=== PATIENT | female | born 1940 | race Hispanic/Latino ===

== ENCOUNTER 2016-06-13 07:42 | Emergency (ER) | payer MEDICARE, OTHER ==
[2016-06-13 07:55] VITALS: BMI 18.8
[2016-06-13 07:57] VITALS: BP 180/85; PULSE 58; RESP 16; TEMP 98.7; O2SAT 97
--- NOTE | 2016-06-13 08:19 | ED PDOC ---
Arrival/HPI - General Chief Complaint: Back Pain Time Seen by Provider: 06/13/16 07:48 - History of Present Illness Narrative History of Present Illness (Text): 06/13/16 08:16 Patient presents complaining of back pain. States the location is in the R. lower region, feels like muscle spasms. Worst with movement and palpation. Pt states this feels identical to previous back pain quality that have happened in the past. Denies fevers/chills, denies IVDA, denies any lower extremity weakness /numbness/paresthesias. Pt denies saddle anesthesia. Denies any urinary freq or retention. Denies bowel dysfunction/irregularity/incontinence/constipation. Past Medical History - Provider Review Nursing Documentation Reviewed: Yes - Infectious Disease Hx of Infectious Diseases: None, C.diff - Tetanus Immunization Tetanus Immunization: Unknown - Cardiac Hx Atrial Fibrillation: Yes Hx Cardiac Arrhythmia: Yes Hx Congestive Heart Failure: Yes Hx Hypertension: Yes - Pulmonary Hx Respiratory Disorders: Yes Hx Chronic Obstructive Pulmonary Disease (COPD): Yes Hx Emphysema: Yes - Neurological Hx Neurological Disorder: Yes Hx Transient Ischemic Attacks (TIA): Yes - HEENT Hx HEENT Disorder: Yes Hx Glaucoma: Yes - Renal Hx Renal Disorder: No Hx Kidney Stones: No - Endocrine/Metabolic Hx Endocrine Disorders: No Hx Hyperthyroidism: No Hx Hypothyroidism: No - Hematological/Oncological Hx Anemia: No Hx Sickle Cell Disease: No - Integumentary Hx Dermatological Disorder: No - Musculoskeletal/Rheumatological Hx Musculoskeletal Disorders: Yes Hx Arthritis: Yes Hx Osteoporosis: Yes - Gastrointestinal Hx Gastrointestinal Disorders: Yes Hx Gastrointestinal Ulcer: Yes - Genitourinary/Gynecological Hx Genitourinary Disorders: No Hx Sexually Transmitted Diseases: No - Psychiatric Hx Psychophysiologic Disorder: Yes Hx Anxiety: Yes Hx Depression: Yes Hx Substance Use: No - Past Surgical History Past Surgical History: No Previous - Surgical History Hx Appendectomy: No Hx Cholecystectomy: No Hx Coronary Stent: No Hx Tonsillectomy: Yes - Anesthesia Hx Anesthesia: No - Suicidal Assessment Feels Threatened In Home Enviroment: No Family/Social History Family/Social History: No Known Family HX Smoking Status: Light Smoker < 10 Cigarettes Daily Hx Alcohol Use: No Hx Substance Use: No Hx Substance Use Treatment: Yes Allergies/Home Meds Allergies/Adverse Reactions: Allergies No Known Allergies Allergy (Verified 06/13/16 07:55) Home Medications: Home Meds Medication Instructions Recorded Confirmed Alprazolam [Xanax] 1 mg PO BID PRN 06/02/12 06/09/14 Aspirin 81 mg PO DAILY 06/09/14 06/13/16 Buprenorphine HCl/Naloxone HCl 06/13/16 [Suboxone 2 mg-0.5 mg Sl Film] amLODIPine [Norvasc] 06/13/16 Physical Exam - Physical Exam Narrative Physical Exam (Text): 06/13/16 08:17 - Review of Systems Constitutional: Normal. absent: Fatigue, Weight Change, Fevers Eyes: Normal ENT: denies sore throat, denies tristhmus Respiratory: Normal. absent: SOB, Cough, Sputum Cardiovascular: absent: Chest Pain, Palpitations, Syncope Gastrointestinal: Normal. absent: Abdominal Pain, Diarrhea, Nausea, Vomiting Genitourinary: Normal. absent: Dysuria, Frequency, Hematuria, vaginal bleeding Musculoskeletal: Back Pain. absent: Arthralgias, Neck Pain Skin: no rashes, no erythema Neurological: absent: Focal Weakness Endocrine: Normal Hemo/Lymphatic: Normal Psychiatric: No suicidal or homicidal ideations Physical exam Patient appears age appropriate in no distress, speaking full sentences without difficulty Increased hypertonicity appreciated in the right lower lumbar region, pain quality with palpation. No midline tenderness. FROM of pt's cervical, thoracic, lumbar, and sacral regions appreciated, active/passive without any difficulty. Lower extremities with full neurological and vascular intact. Steady gait. - Systems Exam Head: Present: Atraumatic, Normocephalic Pupils: Present: PERRL Extroacular Muscles: Present: EOMI Conjunctiva: Present: Normal Mouth: Present: Moist Mucous Membranes Neck: Present: Normal Range of Motion. No: MIDLINE TENDERNESS, Paraspinal Tenderness Respiratory/Chest: Present: Clear to Auscultation, Good Air Exchange. No: Respiratory Distress, Accessory Muscle Use, Tachypneic Cardiovascular: Present: Regular Rate and Rhythm, Normal S1, S2, Peripheal Pulses Present. No: Murmurs Abdomen: Present: Normal Bowel Sounds. No: Tenderness, Distention, Peritoneal Signs, Rebound, Guarding Back: Present: No: Midline Tenderness Upper Extremity: Present: Normal Inspection. No: Cyanosis, Edema Lower Extremity: Present: Normal Inspection. No: Edema Neurological: Present: GCS=15, Speech Normal, cranial nerves II through XII fully intact with no cerebellar abnormality, neurosensory fully intact. No focal neurological deficits. Skin: Present: Warm, Dry, Normal Color. No: Rashes Lymphatic: Present: OX3, NI, NC Psychiatric: Present: Alert, Oriented x 3, Normal Insight, Normal Concentration Vital Signs Reviewed: Yes Vital Signs Temp Pulse Resp BP Pulse Ox 06/13/16 07:55 98.7 F 58 L 16 180/85 H 97 Temperature: Afebrile Blood Pressure: Hypertensive (pt states she has a hx of HTN, asymptomatic) Pulse: Regular Respiratory Rate: Normal Appearance: Positive for: Non-Toxic, Comfortable Pain Distress: Mild Mental Status: Positive for: Alert and Oriented X 3 Medical Decision Making ED Course and Treatment: pt refused any medications in the ER, reported symptomatic relief without intervention. Ambulating in the emergency department.Based on hx and physical, no suspicion for renal involvement, cord impingement or epidural/spinal abscess stable for dc home. instructed not to drive/operate machinery/drink/do drugs with medication Pt verbalized understands to return to the ER right away for new or worsening symptoms or for inability to f/u with PMD or specialist as instructed. Patient verbalized full agreement with and understanding of discharge instructions. States that she agrees with the plan and disposition. Verbalized and repeated discharge instructions and plan. I have given the patient opportunity to ask any additional questions. - Medication Orders Current Medication Orders: Discontinued Medications Diazepam (Valium) 5 mg PO ONCE ONE Stop: 06/13/16 08:13 Ketorolac Tromethamine (Toradol) 15 mg IM STAT STA Stop: 06/13/16 08:13 Disposition/Present on Arrival - Present on Arrival Any Indicators Present on Arrival: No History of DVT/PE: No History of Uncontrolled Diabetes: No Urinary Catheter: No History of Decub. Ulcer: No History Surgical Site Infection Following: None - Disposition Have Diagnosis and Disposition been Completed?: Yes Diagnosis: Back pain Disposition: HOME/ ROUTINE Disposition Time: 08:42 Patient Plan: Discharge Condition: GOOD Discharge Instructions (ExitCare): Chronic Back Pain (ED) Additional Instructions: PLEASE RETURN TO THE EMERGENCY DEPARTMENT FOR NEW OR WORSENING SYMPTOMS. RETURN RIGHT AWAY IF YOU CANNOT FOLLOW UP WITH YOUR PRIMARY CARE DOCTOR, CLINIC, OR SPECIALIST IN 1-2 DAYS.
== END 2016-06-13 09:06 | disposition home or self-care (01) ==
LOC: ED 07:42
DX: M54.9 Dorsalgia, unspecified (principal); I48.91 Unspecified atrial fibrillation; I10 Essential (primary) hypertension

== ENCOUNTER 2016-08-18 08:14 | Inpatient (IN) | payer MEDICARE, OTHER ==
[2016-08-18 08:14] VITALS: BMI 18.8
--- NOTE | 2016-08-18 08:36 | ED PDOC ---
Arrival/HPI - General Chief Complaint: High Blood Pressure Time Seen by Provider: 08/18/16 08:16 Historian: Patient - History of Present Illness Narrative History of Present Illness (Text): 08/18/16 08:31 76 year old female presents to the emergency department complaining of anxiety and withdrawal from Xanax. She states she ran out of her Xanax two days ago, which she has been taking 1 mg BID for the past 10 years. She states this feels like previous symptoms when she was off Xanax. Symptoms include left sided non- exertional, non-radiating chest pain, shortness of breath, and insomnia. She also reports life stressors due to moving out of her "boarding home." Patient reports she has an appointment with her PCP at 17:00 later today. PMD: Dr. Porter Time/Duration: < week Symptom Onset: Gradual Symptom Course: Unchanged Modifying Factors (Text): None Past Medical History - Provider Review Nursing Documentation Reviewed: Yes - Infectious Disease Hx of Infectious Diseases: None - Tetanus Immunization Tetanus Immunization: Unknown - Cardiac Hx Atrial Fibrillation: Yes Hx Cardiac Arrhythmia: Yes Hx Congestive Heart Failure: Yes Hx Hypertension: Yes - Pulmonary Hx Respiratory Disorders: Yes Hx Chronic Obstructive Pulmonary Disease (COPD): Yes Hx Emphysema: Yes - Neurological Hx Neurological Disorder: Yes Hx Transient Ischemic Attacks (TIA): Yes - HEENT Hx HEENT Disorder: Yes Hx Glaucoma: Yes - Renal Hx Renal Disorder: No Hx Kidney Stones: No - Endocrine/Metabolic Hx Endocrine Disorders: No Hx Hyperthyroidism: No Hx Hypothyroidism: No - Hematological/Oncological Hx Anemia: No Hx Sickle Cell Disease: No - Integumentary Hx Dermatological Disorder: No - Musculoskeletal/Rheumatological Hx Musculoskeletal Disorders: Yes Hx Arthritis: Yes Hx Osteoporosis: Yes - Gastrointestinal Hx Gastrointestinal Disorders: Yes Hx Gastrointestinal Ulcer: Yes - Genitourinary/Gynecological Hx Genitourinary Disorders: No Hx Sexually Transmitted Diseases: No - Psychiatric Hx Psychophysiologic Disorder: Yes Hx Anxiety: Yes Hx Depression: Yes Hx Substance Use: No - Past Surgical History Past Surgical History: No Previous - Surgical History Hx Appendectomy: No Hx Cholecystectomy: No Hx Coronary Stent: No Hx Tonsillectomy: Yes - Anesthesia Hx Anesthesia: No - Suicidal Assessment Feels Threatened In Home Enviroment: No Family/Social History - Physician Review Nursing Documentation Reviewed: Yes Family/Social History: Unknown Family HX Smoking Status: Light Smoker < 10 Cigarettes Daily Hx Alcohol Use: No Hx Substance Use: No Hx Substance Use Treatment: Yes Allergies/Home Meds Allergies/Adverse Reactions: Allergies No Known Allergies Allergy (Verified 08/18/16 08:27) Home Medications: Home Meds Medication Instructions Recorded Confirmed Alprazolam [Xanax] 1 mg PO BID PRN 06/02/12 06/09/14 Aspirin 81 mg PO DAILY 06/09/14 06/13/16 Buprenorphine HCl/Naloxone HCl 06/13/16 [Suboxone 2 mg-0.5 mg Sl Film] amLODIPine [Norvasc] 06/13/16 Review of Systems - Physician Review All systems were reviewed & negative as marked: Yes - Review of Systems Constitutional: Other (Insomnia) Eyes: absent: Vision Changes ENT: absent: Hearing Changes Respiratory: SOB Cardiovascular: Chest Pain Gastrointestinal: absent: Abdominal Pain Neurological: absent: Dizziness Psychiatric: Anxiety Physical Exam Vital Signs Reviewed: Yes Vital Signs Temp Pulse Resp BP Pulse Ox 08/18/16 10:46 60 16 152/77 H 08/18/16 10:39 52 L 124/79 08/18/16 10:34 63 16 124/73 97 08/18/16 09:22 72 16 166/84 H 97 08/18/16 08:19 98.2 F 126 H 18 185/114 H 96 Temperature: Afebrile Blood Pressure: Hypertensive Pulse: Tachycardic Respiratory Rate: Normal Appearance: Positive for: Well-Appearing, Non-Toxic, Comfortable Pain Distress: None Mental Status: Positive for: Alert and Oriented X 3 - Systems Exam Head: Present: Atraumatic, Normocephalic Pupils: Present: PERRL Extroacular Muscles: Present: EOMI Conjunctiva: Present: Normal Mouth: Present: Moist Mucous Membranes Neck: Present: Normal Range of Motion Respiratory/Chest: Present: Clear to Auscultation, Good Air Exchange. No: Respiratory Distress, Accessory Muscle Use Cardiovascular: Present: Normal S1, S2, Tachycardic. No: Murmurs Abdomen: Present: Normal Bowel Sounds. No: Tenderness, Distention, Peritoneal Signs Back: Present: Normal Inspection Upper Extremity: Present: Normal Inspection. No: Cyanosis, Edema Lower Extremity: Present: Normal Inspection. No: Edema Neurological: Present: GCS=15, CN II-XII Intact, Speech Normal Skin: Present: Warm, Dry, Normal Color. No: Rashes Psychiatric: Present: Alert, Oriented x 3, Normal Concentration Medical Decision Making ED Course and Treatment: EKG: Ordered, reviewed, and independently interpreted the EKG. Rate : 125 BPM Rhythm : Accelerated junctional rhythm Interpretation : Bifascicular block, no STEMI Comparison : Appears similar to EKG on 10/17/13. 08/18/16 08:34 EKG findings discussed with Dr. Finney. 08/18/16 09:58 Repeat EKG shows sinus rhythm at 61 BPM with 1st degree AV block, incomplete right bundle branch block, no STEMI. Patient refused X-ray. 08/18/16 10:[address] Porter who accepts for admission. Chest X-ray Gis Mapping Technician : Rebecca Wilson MD Report Date : 08/18/2016 11:28:18 IMPRESSION: No acute findings. Mild pulmonary venous congestion and persistent moderate cardiomegaly. - Lab Interpretations Lab Results: 08/18/16 08:30 08/18/16 08:30 Lab Results 08/18/16 08:30: Alcohol, Quantitative < 10 08/18/16 08:30: TSH 3rd Generation 1.84 08/18/16 08:30: Sodium 138, Potassium 4.0, Chloride 102, Carbon Dioxide 26, Anion Gap 14, BUN 17, Creatinine 0.9, Est GFR ( Amer) > 60, Est GFR (Non- Af Amer) > 60, Random Glucose 100, Calcium 9.5, Total Bilirubin 1.0, AST 32, ALT 27, Alkaline Phosphatase 51, Troponin I < 0.01, Total Protein 7.8, Albumin 4.4, Globulin 3.4, Albumin/Globulin Ratio 1.3 08/18/16 08:30: WBC 5.1 D, RBC 4.40, Hgb 13.2, Hct 39.7, MCV 90.2, MCH 30.0, MCHC 33.2, RDW 13.8, Plt Count 118 L, MPV 10.2, Gran % 76.0 H, Lymph % (Auto) 17.7 L, Webb % (Auto) 4.7, Eos % (Auto) 1.2 L, Baso % (Auto) 0.4, Gran # 3.87, Lymph # 0.9 L, Webb # 0.2, Eos # 0.1, Baso # 0.02 08/18/16 08:01: Urine Opiates Screen Positive H, Urine Methadone Screen Negative , Ur Barbiturates Screen Negative, Ur Phencyclidine Scrn Negative, Ur Amphetamines Screen Negative, U Benzodiazepines Scrn Negative, U Oth Cocaine Metabols Negative, U Cannabinoids Screen Negative 08/18/16 08:01: Urine Color Yellow, Urine Appearance Clear, Urine pH 7.0, Ur Specific [place] 1.010, Urine Protein 30 H, Urine Glucose (UA) Negative, Urine Ketones Negative, Urine Blood Negative, Urine Nitrate Negative, Urine Bilirubin Negative, Urine Urobilinogen 0.2, Ur Leukocyte Esterase Negative, Urine RBC 0 - 2, Urine WBC 0 - 2, Ur Epithelial Cells 3 - 4, Urine Bacteria Few - RAD Interpretation Radiology Orders: 08/18/16 08:35 CHEST PORTABLE [RAD] Stat - EKG Interpretation Interpreted by ED Physician: Yes Type: 12 lead EKG - Medication Orders Current Medication Orders: Alprazolam (Xanax) 1 mg PO BID PRN; Protocol PRN Reason: Agitation Amlodipine Besylate (Norvasc) 5 mg PO DAILY RENATO Arformoterol Tartrate (Brovana) 15 mcg IH [id number] RENATO Atenolol (Tenormin) 25 mg PO DAILY RENATO Budesonide (Pulmicort Respules) 0.5 mg IH BID RENATO Enoxaparin Sodium (Lovenox) 40 mg SC DAILY RENATO PRN Reason: Protocol Buprenorphine Hcl/Naloxone Hcl [ Suboxone 2 Mg-0.5 Mg Sl Film] 0 2 PO BID RENATO Stop: 08/25/16 08:00 Pantoprazole Sodium (Protonix Ec Tab) 40 mg PO ACB RENATO Discontinued Medications Alprazolam (Xanax) 1 mg PO STAT STA PRN Reason: Protocol Stop: 08/18/16 08:37 Last Admin: 08/18/16 08:52 Dose: 1 mg Amlodipine Besylate (Norvasc) 5 mg PO STAT STA Stop: 08/18/16 10:30 Last Admin: 08/18/16 10:51 Dose: 5 mg Atenolol (Tenormin) 25 mg PO STAT STA Stop: 08/18/16 09:30 Last Admin: 08/18/16 09:43 Dose: Sodium Chloride (Sodium Chloride 0.9%) 500 mls @ 999 mls/hr IV .Q31M STA Stop: 08/18/16 09:07 Last Admin: 08/18/16 09:11 Dose: 999 mls/hr Metoprolol Tartrate (Lopressor) 5 mg IVP STAT STA Stop: 08/18/16 10:27 Last Admin: 08/18/16 10:39 Dose: Not Given Non-Admin Reason: BP Parameters Not Met - Scribe Statement The provider has reviewed the documentation as recorded by the Lisa Fuchs Provider Scribe Attestation: All medical record entries made by the Larryibflorencio were at my direction and personally dictated by me. I have reviewed the chart and agree that the record accurately reflects my personal performance of the history, physical exam, medical decision making, and the department course for this patient. I have also personally directed, reviewed, and agree with the discharge instructions and disposition. Disposition/Present on Arrival - Present on Arrival Any Indicators Present on Arrival: No History of DVT/PE: No History of Uncontrolled Diabetes: No Urinary Catheter: No History of Decub. Ulcer: No History Surgical Site Infection Following: None - Disposition Have Diagnosis and Disposition been Completed?: Yes Diagnosis: Chest pain, Benzodiazepine dependence Disposition: HOSPITALIZED Disposition Time: 10:16 Patient Problems: Current Active Problems Problem Status Onset Chest pain Acute Benzodiazepine dependence Acute Condition: STABLE
[2016-08-18] MEDS ORDERED: Sodium Chloride 0.9% 500 ML IV STA (08:37)
[2016-08-18 08:40] LABS: ADD MANUAL DIFF? NO
[2016-08-18 08:45] LABS: BASO # 0.02 K/mm3 (0.0-2.0); BASO % 0.4 % (0.0-3.0); EOS # 0.1 (0.0-0.7); EOS % 1.2 % (1.5-5.0); GRAN # 3.87 (1.4-6.5); HEMATOCRIT 39.7 % (36.0-48.0); LYMPH # 0.9 (1.2-3.4); LYMPH % 17.7 % (22.0-35.0); MEAN CELL VOLUME 90.2 fL (80.0-105.0); MEAN CORPUSCULAR HGB CONC 33.2 g/dl (31.0-37.0); MEAN PLATELET VOLUME 10.2 fl (7.0-11.0); MONO # 0.2 (0.1-0.6); MONO % 4.7 % (1.0-6.0); PLATELET COUNT 118 10^3/uL (120.0-450.0); RED CELL DISTRIBUTION WIDTH 13.8 % (11.5-14.5); WHITE BLOOD COUNT 5.1 10^3/ul (4.5-11.0)
[2016-08-18 08:58] LABS: ALB/GLOB RATIO 1.3 (1.1-1.8); ALKALINE PHOSPHATASE 51 U/L (38-133); ALT/SGPT 27 U/L (7-56); AST/SGOT 32 U/L (15-39); BLOOD UREA NITROGEN 17 mg/dL (7-21); CALCIUM 9.5 mg/dL (8.4-10.5); CARBON DIOXIDE 26 mmol/L (21-33); CHLORIDE 102 mmol/L (98-107); GFR AFRICAN-AMERICAN > 60; GLUCOSE,RANDOM 100 mg/dL (70-110); SODIUM 138 mmol/L (132-148); TOTAL PROTEIN 7.8 g/dL (5.8-8.3)
[2016-08-18 09:13] LABS: TROPONIN I < 0.01 ng/mL
[2016-08-18 09:29] LABS: URINE APPEARANCE CLEAR (CLEAR); URINE BILIRUBIN NEGATIVE (NEGATIVE); URINE BLOOD NEGATIVE (NEGATIVE); URINE COLOR YELLOW (YELLOW); URINE GLUCOSE (UA) NEGATIVE (NEGATIVE); URINE KETONE NEGATIVE (NEGATIVE); URINE LEUKOCYTE ESTERASE NEGATIVE Leu/uL (NEGATIVE); URINE PROTEIN 30 mg/dL (<30 mg/dL); URINE UROBILINOGEN 0.2 E.U./dL (<1 E.U./dL)
[2016-08-18 09:44] LABS: URINE BACTERIA FEW (NEG); URINE RBC 0 - 2 /hpf (0-2); URINE WBC 0 - 2 /hpf (0-6)
[2016-08-18] MEDS ORDERED: Metoprolol 1 mg/ml Inj IVP STA (10:26)
--- NOTE | 2016-08-18 10:51 | CON ---
DATE: 08/18/2016 SERVICE: Cardiology. REASON FOR CONSULTATION: Possible AFib with rapid ventricular rate, shortness of breath. BRIEF CLINICAL HISTORY: A 76-year-old female with known history of paroxysmal atrial fibrillation, h ypertension, COPD, pulmonary hypertension, tobacco abuse, sleep apnea, history of substance abuse, he roin abuse, history of hepatitis C, cirrhosis and history of methadone program, now off methadone pro gram, on Xanax 1 mg b.i.d. The patient says that she ran out and so becomes anxiety disorder, so came to the Emergency Room because of developing shortness of breath and anxiety disorder, as patient did not have Xanax for 2 days and patient has a lot of stress due to moving out from her boarding home a nd very anxious. Denies any chest pain, but earlier complained of some shortness of breath associate d with chest pain, heaviness in the chest. PAST MEDICAL HISTORY: Significant for history of paroxysmal atrial fibrillation, SVT, hypertension, tobacco abuse, COPD, obstructive sleep apnea, hepatitis C, cirrhosis of liver, heroin abuse on methad one program. Previous cardiac workup as follows: The patient had in 05/2012 a stress test that was negative, ejec tion fraction 63%. The patient had echocardiography on 06/04/2012 that shows ejection fraction 60%-6 5%, RV pressure volume overload noted, function of RV is moderately reduced, trace to mild aortic reg urgitation, mild mitral regurgitation, severe tricuspid regurgitation, RV systolic pressure of 75 and pulmonary hypertension. SOCIAL HISTORY: Smokes 1-2 packs a day. Now she said that she smokes 1-2 cigarettes a day. Lives i n the boarding home and takes Xanax. Denies any history of alcohol abuse. FAMILY HISTORY: Noncontributory. CURRENT MEDICATIONS: The patient at home taking amlodipine, Suboxone, Tenormin 25, aspirin 81 mg kareen ly. REVIEW OF SYSTEMS: As per HPI. PHYSICAL EXAMINATION: VITAL SIGNS: Temperature afebrile, heart rate 126, blood pressure 160/84. HEENT: PERRLA. Extraocular muscles intact. NECK: Supple. No carotid bruits. No thyromegaly. CHEST: Clear to auscultation. HEART: S1, S2 regular. ABDOMEN: Soft. EXTREMITIES: Clubbing and cyanosis negative. LABORATORY DATA: Blood workup as follows: WBC 5.1, hemoglobin 13.2, hematocrit 39.7, platelet count 118. Chemistry shows sodium 130, potassium 4, chloride 102, carbon dioxide 26, anion gap of 14, BUN 17, creatinine 0.9, troponin 0.01. EKG shows possible AFib with rapid rate. Computer reading is gladys ction, but it looks like [id number] variation, very carefully it looks probably AFib. RECOMMENDATION: We will give 5 mg of Lopressor IV and resume Tenormin. We will give 1 dose of Loven ox as well. When finished the consultation yesterday, she told me the patient wants to sign out if t he patient is stable. We will closely follow with you. Thank you, Dr. Porter, for providing the opportunity in taking care of this patient. Vania Finney MD cc: [id number] TT: 08/18/2016 10:51:18 Confirmation # [id number] Dictation # [id number] calvin
--- NOTE | 2016-08-18 11:30 | RAD ---
HISTORY: Chest pain COMPARISON: No prior. FINDINGS: LUNGS: There is mild pulmonary venous congestion. No focal consolidation. There is subsegmental atelectasis in the left mid lung. PLEURA: No significant pleural effusion identified, no pneumothorax apparent. CARDIOVASCULAR: There is persistent moderate cardiomegaly. Atherosclerotic aortic arch calcifications are present. . OSSEOUS STRUCTURES: Again seen is severe S-shaped scoliosis in the thoracolumbar spine. VISUALIZED UPPER ABDOMEN: Normal. OTHER FINDINGS: None. IMPRESSION: No acute findings. Mild pulmonary venous congestion and persistent moderate cardiomegaly.
[2016-08-18] MEDS ORDERED: Pneumococcal 23-Valent Vaccine IM ONE (13:08)
[2016-08-18] MEDS: Enoxaparin 40 mg Syringe SC SCH (13:37)
[2016-08-18] MEDS: Pantoprazole 40 mg EC Tab PO SCH (13:37)
[2016-08-18] MEDS: Budesonide 0.5 mg/2 ml Inhal Susp UD IH SCH ×2 (13:37→19:35)
[2016-08-18] MEDS: Buprenorphine Hcl/Naloxone Hcl [Suboxone 2 Mg-0.5 Mg Sl Film] PO SCH ×2 (13:37→17:51)
[2016-08-18] MEDS: Arformoterol 15 mcg/2 ml Inh Sol IH SCH (19:35)
--- NOTE | 2016-08-18 23:41 | CARD ---
APPROVED REPORT EKG Measurement Heart [id number] MA 212P70 [id number] <Conclusion> Sinus rhythm with 1st degree AV block Right atrial enlargement Right axis deviation Incomplete right bundle branch block Right ventricular hypertrophy Abnormal ECG
--- NOTE | 2016-08-18 23:43 | CARD ---
APPROVED REPORT EKG Measurement Heart [id number] HI 212P66 [id number] <Conclusion> Sinus rhythm with 1st degree AV block Right atrial enlargement Incomplete right bundle branch block Possible Right ventricular hypertrophy Abnormal ECG
--- NOTE | 2016-08-18 23:45 | CARD ---
APPROVED REPORT EKG Measurement Heart [id number] SD 120P [id number] <Conclusion> Junctional tachycardia Right bundle branch block Left posterior fascicular block Bifascicular block Abnormal ECG
[2016-08-19 07:27] LABS: ADD MANUAL DIFF? NO
[2016-08-19 07:31] LABS: BASO # 0.02 K/mm3 (0.0-2.0); BASO % 0.6 % (0.0-3.0); EOS # 0.1 (0.0-0.7); EOS % 3.6 % (1.5-5.0); GRAN # 1.86 (1.4-6.5); GRAN % 60.2 % (50.0-68.0); LYMPH # 0.9 (1.2-3.4); LYMPH % 29.1 % (22.0-35.0); MEAN CELL VOLUME 91.4 fL (80.0-105.0); MEAN CORPUSCULAR HGB CONC 31.7 g/dl (31.0-37.0); MEAN PLATELET VOLUME 9.9 fl (7.0-11.0); MONO # 0.2 (0.1-0.6); MONO % 6.5 % (1.0-6.0); PLATELET COUNT 96 10^3/uL (120.0-450.0); RED CELL DISTRIBUTION WIDTH 14.2 % (11.5-14.5); WHITE BLOOD COUNT 3.1 10^3/ul (4.5-11.0)
[2016-08-19] MEDS: Arformoterol 15 mcg/2 ml Inh Sol IH SCH ×2 (07:33→19:48)
[2016-08-19 07:50] LABS: ALB/GLOB RATIO 1.1 (1.1-1.8); ALKALINE PHOSPHATASE 36 U/L (38-133); ALT/SGPT 23 U/L (7-56); AST/SGOT 26 U/L (15-39); BILIRUBIN,TOTAL 0.6 mg/dL (0.2-1.3); BLOOD UREA NITROGEN 22 mg/dL (7-21); CALCIUM 9.1 mg/dL (8.4-10.5); CARBON DIOXIDE 29 mmol/L (21-33); CHLORIDE 103 mmol/L (98-107); CHOLESTEROL 140 mg/dL (130-200); GFR AFRICAN-AMERICAN > 60; GLUCOSE,RANDOM 104 mg/dL (70-110); POTASSIUM 4.1 mmol/L (3.6-5.0); SODIUM 139 mmol/L (132-148); TOTAL PROTEIN 6.4 g/dL (5.8-8.3)
[2016-08-19] MEDS: Pantoprazole 40 mg EC Tab PO SCH (08:08)
[2016-08-19] MEDS: Buprenorphine Hcl/Naloxone Hcl [Suboxone 2 Mg-0.5 Mg Sl Film] PO SCH ×2 (09:55→18:02)
[2016-08-19] MEDS: Enoxaparin 40 mg Syringe SC SCH (09:56)
--- NOTE | 2016-08-19 11:22 | HP ---
HISTORY OF PRESENT ILLNESS: The patient is a 76-year-old female with history of paroxysmal A-fib, [place] PD, chronic anxiety, on Suboxone for drug addiction. She came into the hospital because of palpitati ons and very anxious. She said that she has withdrawal from her Xanax because she did not find her b ottle, lost it. She also complained of chest discomfort, left side, nonradiating associated with katharine e shortness of breath. The patient does have insomnia and she has difficulty sleeping for the last f ew days. No other complaints. PAST MEDICAL HISTORY: Paroxysmal A-fib, history of congestive heart failure, osteoporosis, kyphoscol iosis, chronic back pain, chronic anxiety for years, history of being on methadone and now Suboxone. She has also COPD, obstructive sleep apnea, pulmonary hypertension. ALLERGIES: No known allergies. SOCIAL HISTORY: She lives in a facility with multiple people. She smokes. Smoking is less than 10 cigarettes a day. No alcohol. She had been using heroin in the past. She quit doing that and she i s on methadone and now on Suboxone. REVIEW OF SYSTEMS: She always complained of anxiety, distress, depressed, crying, back pain, knee ar thritis, short of breath, wheezing, coughing, difficulty sleeping. PHYSICAL EXAMINATION: VITAL SIGNS: Temperature 98.2, heart rate 60, blood pressure 152/77, respirations 16. HEAD AND NECK: Normal. No JVD, no thyromegaly. CHEST: Clear, good air entry. A few rhonchi in the bases, diminished breath sounds on the left. CARDIAC: First sound, second sound normal with extra beats. There is a systolic murmur. ABDOMEN: Soft, nontender. EXTREMITIES: No edema. NEUROLOGIC: Nonfocal. LABORATORY STUDIES: Her labs show white count 5.1, hemoglobin 13.2, hematocrit 39.7, platelets 118. Laboratory shows sodium 138, potassium 4, chloride 102, bicarb 26, BUN 17, creatinine 0.9. Liver fu nction test is normal. Troponin 0.01, negative. TSH 1.84. IMPRESSION: 1. Acute anxiety. We will resume Xanax. 2. History of chronic addiction and history of methadone. At this time, patient is on methadone. W e will continue Suboxone. 3. Chronic obstructive pulmonary disease. Continue inhaled bronchodilators and BiPAP machine for sl eep apnea. 4. Hypertension. Continue Tenormin. Monitor her heart rate, Norvasc 5 mg and we will follow up cli nically. Continue inhaled bronchodilators. Follow up with the oil well services field supervisor. The patient did have c hest pain. We will discuss with the oil well services field supervisor. We will resume Xanax, resume Suboxone and Protoni x. Saul Porter MD cc: [id number] TT: 08/19/2016 11:21:15 tn
--- NOTE | 2016-08-19 15:29 | PN ---
DATE: 08/19/2016 REASON FOR CONSULTATION AND FOLLOWUP: Paroxysmal atrial fibrillation, admitted with AFib, rapid rate , converted to normal sinus. BRIEF CLINICAL HISTORY: A 76-year-old female with past medical history significant for paroxysmal at rial fibrillation, hypertension, COPD, pulmonary hypertension, tobacco abuse, sleep apnea, history of substance abuse and heroin abuse, history of hepatitis C, cirrhosis, history of methadone program, o n Xanax but ran out and patient came here with anxiety disorder and AFib. The patient was given Card izem and beta ese. The patient converted to normal sinus. Denies any chest and wanted to go phuong e, does not want to stay here. The patient had last stress test in 05/2012, was negative for ischemi a, ejection fraction 63%. Last echo 06/04/2012 shows ejection fraction 65%. Denies any chest pain, shortness of breath, any palpitation. PHYSICAL EXAMINATION: VITAL SIGNS: Temperature afebrile, heart rate 65, blood pressure 130/64. HEENT: PERRLA. Extraocular muscles intact. NECK: Supple. No carotid bruits. No thyromegaly. CHEST: Clear to auscultation. HEART: S1, S2 regular. ABDOMEN: Soft. EXTREMITIES: Clubbing and cyanosis negative. LABORATORY DATA: Blood workup as follows: WBC 3.1, hemoglobin , hematocrit 35, platelet count 96. Chemistry shows sodium 130, potassium 4.0, chloride 103, carbon dioxide 20, anion gap of 11, BUN 22, creatinine 1.0. IMPRESSION: No evidence of acute myocardial infarction. No evidence of acute coronary syndrome. Hi story of Xanax dependent, probably Xanax withdrawal, ran out, anxiety disorder, last stress test in 2 013 was negative, ejection fraction 63%. Last echo 06/04/2012. Ejection fraction 65%, right ventric ular systolic pressure 75, pulmonary hypertension moderate, severe pulmonary hypertension, lorena re tricuspid regurgitation, paroxysmal atrial fibrillation. Lopressor was given and then p.o. starte d. The patient converted to normal sinus. The patient wanted to go home. RECOMMENDATION: We will schedule a stress test as outpatient. We will follow with you. Thank you, Dr. Porter, for providing the opportunity in taking care of the patient. Vania Finney MD cc: [id number] TT: 08/19/2016 15:28:59 Confirmation # [id number] Dictation # [id number] rn
--- NOTE | 2016-08-19 18:46 | CARD ---
APPROVED REPORT EXAM: Two-dimensional and M-mode echocardiogram with Doppler and color Doppler. INDICATION Chest Pain 2D DIMENSIONS Left Atrium (2D)4.4 (1.6-4.0cm)IVSd1.1 (0.7-1.1cm) LVDd3.2 (3.9-5.9cm)PWd1.0 (0.7-1.1cm) LVDs2.2 (2.5-4.0cm)FS (%) 32.1 % LVEF (%)61.6 (>50%) M-Mode DIMENSIONS Aortic Root2.70 (2.2-3.7cm)Aortic Cusp Exc.0.90 (1.5-2.0cm) Aortic Valve AoV Peak Pkhrtolz027.0cm/[place] GR.12mmHg Mitral Valve MV E Edsoqsyt674.0cm/sMV A Zkazjkri95.4cm/sE/A ratio2.0 TDI E/Lateral E'0.0E/Medial E'0.0 Tricuspid Valve TR Peak Pihsxepp980et/sRAP [id number] Peak Gr.52mmHg [id number] LEFT VENTRICLE The left ventricle is normal size. There is borderline concentric left ventricular hypertrophy. The left ventricular function is normal.EF-60-65% The left ventricular ejection fraction is within the normal range. There is a flattened septum consistent with right ventricle volume and pressure overload. Transmitral Doppler flow pattern is Grade II-pseudonormal filling dynamics. No left ventricle thrombus noted on this study. There is no ventricular septal defect visualized. There is no left ventricular aneurysm. There is no mass noted in the left ventricle. RIGHT VENTRICLE The right ventricle is severely dilated. The right ventricle is mildly hypertrophied. Systolic function of RV is severely reduced. ATRIA The left atrium is mildly dilated. The right atrium is moderately dilated. A small PFo with Left to Right shunt by colr flw noted. AORTIC VALVE The aortic valve is calcified and displays decreased opening. There is trace aortic regurgitation. There is mild to moderate valvular aortic stenosis. There is no aortic valvular vegetation. MITRAL VALVE The mitral valve is thickened but opens well. Mitral regurgitation is trace to mild. There is no mitral valve stenosis. There is no evidence of mitral valve prolapse. TRICUSPID VALVE The tricuspid valve leaflets are thickened , but open well. There is severe tricuspid regurgitation.RVSP-62 mmof hg. There is moderate pulmonary hypertension. There is no tricuspid valve stenosis. There is no tricuspid valve prolapse or vegetation. PULMONIC VALVE The pulmonic valve is mildly thickened. There is trace to mild pulmonic valvular regurgitation. There is no pulmonic valvular stenosis. GREAT VESSELS The aortic root is normal in size. The ascending aorta is normal in size. The pulmonary artery is normal. The IVC is severely dilated. PERICARDIAL EFFUSION There is large left pleural effusion. There is no pericardial effusion. <Conclusion> The left ventricle is normal size. There is borderline concentric left ventricular hypertrophy. The left ventricular function is normal.EF-60-65% The right ventricle is severely dilated. Systolic function of RV is severely reduced. There is trace aortic regurgitation. There is mild to moderate valvular aortic stenosis. Mitral regurgitation is trace to mild. There is severe tricuspid regurgitation.RVSP-62 mmof hg. There is moderate pulmonary hypertension. There is trace to mild pulmonic valvular regurgitation. The IVC is severely dilated. There is large left pleural effusion. There is no pericardial effusion.
[2016-08-19] MEDS: Budesonide 0.5 mg/2 ml Inhal Susp UD IH SCH (19:48)
[2016-08-20] MEDS: Arformoterol 15 mcg/2 ml Inh Sol IH SCH ×2 (08:39→20:09)
[2016-08-20] MEDS: Budesonide 0.5 mg/2 ml Inhal Susp UD IH SCH ×2 (08:39→20:09)
[2016-08-20] MEDS ORDERED: NALOXONE 2 MG PO SCH ×2 (08:39→08:40)
[2016-08-20] MEDS ORDERED: BUPRENORPHINE PO SCH ×2 (08:39→08:40)
[2016-08-20] MEDS: NALOXONE 2 MG PO SCH ×2 (09:19→17:02)
[2016-08-20] MEDS: BUPRENORPHINE PO SCH ×2 (09:19→17:02)
[2016-08-20] MEDS: Enoxaparin 40 mg Syringe SC SCH (09:19)
[2016-08-20] MEDS: Pantoprazole 40 mg EC Tab PO SCH (09:23)
--- NOTE | 2016-08-20 13:40 | PN ---
DATE: 08/20/2016 REASON FOR CONSULTATION AND FOLLOWUP: Paroxysmal atrial fibrillation, admitted with A-fib with rapid ventricular rate, converted to normal sinus, history of anxiety disorder. BRIEF CLINICAL HISTORY: The patient denies any chest pain. Denies any shortness of breath, denies a ny palpitation. PHYSICAL EXAMINATION: VITAL SIGNS: Temperature afebrile, heart rate 55, blood pressure 163/73. HEENT: PERRLA. Extraocular muscles intact. NECK: Supple. No carotid bruits. No thyromegaly. CHEST: Clear to auscultation. HEART: S1, S2 regular. ABDOMEN: Soft. EXTREMITIES: Clubbing and cyanosis negative. LABORATORY DATA: Blood workup as follows: WBC 3.1, hemoglobin 11.0, hematocrit 35, platelet count 9 6. Chemistry shows sodium 139, potassium 4, chloride 113, carbon dioxide 29, anion gap of 11, BUN 22 , creatinine 1.1. IMPRESSION: This is a 76-year-old female with a past medical history significant for paroxysmal atri al fibrillation, hypertension, chronic obstructive pulmonary disease, pulmonary hypertension, tobacco abuse, sleep apnea, history of substance abuse and heroin abuse. History of hepatitis C, cirrhosis, on methadone program, on Xanax, ran out and came here with anxiety disorder, found to be atrial fibr illation. The patient converted to normal sinus after beta ese given. The patient's stress test 05/2012 was negative for ischemia, ejection fraction 63%. Last echo 06/04/2012 shows ejection fract ion 65%. Denies any chest pain. The patient's repeat echo was done yesterday that showed ejection f raction 60-65%, dilated right ventricle, right ventricular systolic pressure of 62 consistent with mo derate pulmonary hypertension, trace pulmonary insufficiency. Right ventricle severely dilated. Lar ge left pleural effusion noted, trace aortic regurgitation, mild to moderate valvular aortic stenosis . RECOMMENDATION: Continue beta ese. We will repeat chest x-ray PA and lateral to see the pleural effusion quantify. The patient says that she ran out of Xanax, ____ here and patient ____ Xanax. I f chest x-ray remains stable, the patient is okay to discharge from cardiology point of view. The pa tient is hemodynamically stable from cardiac point of view. No further cardiac workup is planned at this time. We will schedule a stress test as outpatient. Vania Finney MD cc: [id number] TT: 08/20/2016 13:39:44 Confirmation # [id number] Dictation # [id number] tn
[2016-08-20] MEDS: MethylPREDNISolone 40 mg Vial IVP SCH (21:55)
[2016-08-21] MEDS: Arformoterol 15 mcg/2 ml Inh Sol IH SCH ×3 (08:11→20:34)
[2016-08-21] MEDS: Budesonide 0.5 mg/2 ml Inhal Susp UD IH SCH ×3 (08:11→20:37)
[2016-08-21] MEDS: MethylPREDNISolone 40 mg Vial IVP SCH ×2 (09:53→23:32)
[2016-08-21] MEDS: Enoxaparin 40 mg Syringe SC SCH (09:53)
[2016-08-21] MEDS: Pantoprazole 40 mg EC Tab PO SCH (09:56)
[2016-08-21] MEDS: NALOXONE 2 MG PO SCH ×2 (10:21→18:14)
[2016-08-21] MEDS: BUPRENORPHINE PO SCH ×2 (10:21→18:14)
[2016-08-22] MEDS: Pantoprazole 40 mg EC Tab PO SCH (08:06)
[2016-08-22] MEDS: Arformoterol 15 mcg/2 ml Inh Sol IH SCH ×2 (08:23→20:15)
[2016-08-22] MEDS: Budesonide 0.5 mg/2 ml Inhal Susp UD IH SCH ×2 (08:24→20:15)
--- NOTE | 2016-08-22 08:54 | PN ---
DATE: 08/21/2016 The patient is stable. She is still very depressed, anxious. Getting Xanax; will increase it. Othe rwise, no new complaint. PHYSICAL EXAMINATION: VITAL SIGNS: Temperature is 99.7, heart rate 118, blood pressure 134/85, respirations 17, saturation 94% on room air. HEAD AND NECK: Normal. No JVD, no thyromegaly. CHEST: Clear, good air entry. CARDIAC: First sound, second sound normal. ABDOMEN: Soft, nontender. EXTREMITIES: No edema. NEUROLOGIC: Normal except spine has kyphoscoliosis. IMPRESSION AND PLAN: 1. Acute generalized anxiety with depression. The patient will be seen by psychiatry consult, Dr. Iris kaufman. Increase Xanax to 1 mg 3 times a day and follow up with psychiatrist. 2. Chest pain. This noncardiac. Stable. 3. Hypertension. Seems doing okay on atenolol and Norvasc. 4. Chronic obstructive pulmonary disease with mild exacerbation. Continue IV steroids. Continue in haled bronchodilators. 5. Kyphoscoliosis, pulmonary hypertension. Right-sided pulmonary pressure is in the 60s which is ch ronic, probably secondary to her underlying chronic obstructive pulmonary disease. 6. The patient does have a history of depression, psychiatric admissions. Will consider reevaluatin g. 7. Thrombocytopenia, chronic hepatitis C, kyphoscoliosis, history of being on methadone. Seems stab le. Will continue current therapy. Saul Porter MD cc: [phone] TT: 08/22/2016 08:53:15 Confirmation # [id number] Dictation # [id number] mn
--- NOTE | 2016-08-22 08:58 | PN ---
DATE: 08/20/2016 The patient seems still anxious. She is worried, she is crying, no place. Otherwise, stable. She i s a little bit short of breath with exertion. Otherwise, no new complaint. PHYSICAL EXAMINATION: VITAL SIGNS: Temperature 97.9, heart rate 55, blood pressure 163/73, respirations 20. HEAD AND NECK: Normal. No JVD, no thyromegaly. CHEST: Clear. Few wheezes, few rhonchi, otherwise clear. CARDIAC: First sound, second sound normal. ABDOMEN: Soft, nontender. EXTREMITIES: No edema. NEUROLOGIC: She does have kyphoscoliosis, but nonfocal. PSYCHIATRIC: The patient seems depressed and very anxious. IMPRESSION AND PLAN: 1. Chest pain, noncardiac. The patient does have the stress test in 2012 that was normal. She had echo, good left ventricular functions. Cardiology cleared her. 2. Acute generalized anxiety. The patient does have a history of chronic anxiety, on Xanax plus dep ression. We will consider psych evaluation. 3. Chronic obstructive pulmonary disease with mild acute exacerbation. I will put patient pat ient steroids IV, inhaled bronchodilators. We will continue current treatment. 4. The patient also had social situation. She has no place to go. We will get a social service. T he patient, it is a weekend and nobody can help with that, but we will follow up with the patient. 5. The patient has been on methadone. She is off. This for year now and Suboxone she has pro blem getting good it. We will follow up on that. 6. History of chronic hepatitis C, thrombocytopenia, loss of vision in right eye because of glaucoma , kyphoscoliosis, generalized weakness. We will continue current treatment for now. We will get psy ch evaluate. Maybe she needs psych admissions and get physical therapy over there. Saul Porter MD cc: [phone] TT: 08/22/2016 08:57:21 Confirmation # [id number] Dictation # [id number]
[2016-08-22] MEDS: Enoxaparin 40 mg Syringe SC SCH (09:12)
[2016-08-22] MEDS: MethylPREDNISolone 40 mg Vial IVP SCH ×2 (09:13→21:21)
[2016-08-22] MEDS: BUPRENORPHINE PO SCH ×2 (09:19→17:01)
[2016-08-22] MEDS: NALOXONE 2 MG PO SCH ×2 (09:19→17:01)
--- NOTE | 2016-08-22 16:09 | PN ---
DATE: 08/19/2016 The patient clinically stable. She still has some anxiety. She has been on Suboxone and she cannot get it. Also patient does not feel well. She is still very anxious about her stay. She has no plac e to go. She also feels depressed and seems not happy. PHYSICAL EXAMINATION: VITAL SIGNS: Temperature 97.8, heart rate 46, blood pressure 153/65, respirations 18, saturation 96% room air. HEAD AND NECK: Normal. No JVD, no thyromegaly. CHEST: Bilateral rhonchi, mild wheeze. CARDIAC: First sound, second sound normal. ABDOMEN: Soft, nontender. EXTREMITIES: No edema. NEUROLOGIC: General weakness, but otherwise normal. MUSCULOSKELETAL: She does have kyphoscoliosis. LABORATORY DATA: White count 3.1, hemoglobin 11.1, hematocrit 35.0, platelets are 96. Chemistry: S he has sodium 139, potassium 4.1, chloride 103, bicarb 29, BUN 22, creatinine 1. Liver function test is normal. The patient has normal TSH 1.84. LDL 69, HDL 58 and total cholesterol 140. IMPRESSION AND PLAN: 1. Acute anxiety syndrome/acute generalized anxiety, probably due to her underlying medical problems and social situations. She does have a history of being on Xanax. The patient is getting Xanax. W e will continue Xanax p.r.n. for anxiety. 2. History of narcotic abuse and she was on methadone; now she is on Suboxone. She cannot get the S uboxone. Will try to get. The patient seems stable. The Xanax seems to be helping her a lot so tyrell l continue that. She has no chest pain at this time. 3. Chest pain, atypical. Cardiology has seen the patient. No evidence of acute coronary syndrome. Echocardiogram: Good left ventricular functions, pseudonormal, transmitral flow. 4. Pulmonary hypertension, chronic obstructive pulmonary disease. Continue inhaled bronchodilators. We may consider putting the patient on a small dose of steroids. Will continue bronchodilators. W ill follow up clinically. 5. The patient feels anxious, possible depression. Will consider psych eval for this patient. 6. Social situations. The patient has no place to go. Will consider also social service to see the patient. Continue current management for now. Saul Porter MD cc: [phone] TT: 08/22/2016 08:48:42 Confirmation # [id number] Dictation # [id number] mn
--- NOTE | 2016-08-22 16:29 | PN ---
DATE: 08/22/2016 REASON FOR THE CONSULTATION AND FOLLOWUP: Paroxysmal atrial fibrillation, rapid AFib with rapid vent ricular rate, converted to normal sinus. History of ____ and anxiety disorder, on Xanax. SUBJECTIVE: The patient complains of insomnia and anxiety, asking more sleeping pills and Xanax. OBJECTIVE FINDINGS: PHYSICAL EXAMINATION: As follows: VITAL SIGNS: Temperature afebrile, heart rate 71, blood pressure 148/81. HEENT: PERRLA. Extraocular muscles intact. NECK: Supple. No carotid bruits. No thyromegaly. CHEST: Clear to auscultation. HEART: S1, S2 regular. ABDOMEN: Soft. EXTREMITIES: Clubbing and cyanosis negative. BLOOD WORKUP: As follows: WBC ____, hemoglobin 11.1, hematocrit 35, platelet count 96. Chemistry s hows sodium 139, potassium 4.0, chloride of ____, carbon dioxide 20, anion gap of 11, BUN 22, creatin ine 1.0. IMPRESSION: Anxiety disorder, paroxysmal atrial fibrillation. This is a 76-year-old female with a p ast medical history significant for paroxysmal atrial fibrillation, hypertension, chronic obstructive pulmonary disease, pulmonary hypertension, tobacco abuse, sleep apnea, history of substance abuse, h eroin abuse, history of hepatitis C, cirrhosis. On methadone program. Xanax ran out, the patient ca me here. Has history of anxiety disorder. The patient started on atenolol, converted to normal sinu s. The patient had a stress test 06/09 that was negative for ischemia. Last echo repeat yesterday t hat showed ejection fraction of 60% to 65%, dilated right ventricle, right ventricular systolic press ure 62, moderate pulmonary hypertension, [id number] pulmonary insufficiency, dated 08/16/2016. RECOMMENDATION: Continue atenolol 25 mg. The patient complains that needs more medication for sleep as well as Xanax. We will schedule a stress test as outpatient in 2-3 weeks. We will follow with rowan lewis. The patient is stable, okay to be discharged from cardiology point of view. We will schedule a s tress test as outpatient. We will sign off and glad to follow p.r.n. Thank you, Dr. Porter, for providing us the opportunity in taking care of the patient. Vania Finney MD cc: [phone] TT: 08/22/2016 16:29:17 Confirmation # [id number] Dictation # [id number] sn
--- NOTE | 2016-08-23 00:28 | CP.PCM.PN ---
Subjective - Date & Time of Evaluation Date of Evaluation: 08/23/16 Time of Evaluation: 00:21 - Subjective Subjective: Patient was seen at bedside. She complained of back pain, below right scapula in para vertebral area. Mild pain . No radiation. Also complained of numbness in left hand for few days. No other complaints . Medical record was reviewed. 76 year old white woman came in with palpitation, anxiety, xanax withdrawal. Has PMH of COPD, atrial fibrillation, CHF, chronic anxiety, pulmonary hypertension,osteoporosis, kyphoscoliosis, methadone/suboxone. Objective - Vital Signs/Intake and Output Vital Signs (last 24 hours): Temp Pulse Resp BP Pulse Ox 98.8 F 72 20 133/52 L 95 08/22/16 16:00 08/22/16 16:00 08/22/16 16:00 08/22/16 16:00 08/22/16 16:00 Intake and Output: 08/22/16 08/23/16 18:59 06:59 Intake Total 900 240 Balance 900 240 - Medications Medications: Current Medications Alprazolam (Xanax) 1 mg PO TID PRN; Protocol PRN Reason: Anxiety Last Admin: 08/22/16 21:38 Dose: 1 mg Amlodipine Besylate (Norvasc) 5 mg PO DAILY [facility] Last Admin: 08/22/16 09:12 Dose: 5 mg Arformoterol Tartrate (Brovana) 15 mcg IH [id number] [facility] Last Admin: 08/22/16 20:15 Dose: 15 mcg Aspirin (Aspirin) 325 mg PO DAILY [facility] Last Admin: 08/22/16 09:12 Dose: 325 mg Atenolol (Tenormin) 25 mg PO DAILY [facility] Last Admin: 08/22/16 09:12 Dose: 25 mg Budesonide (Pulmicort Respules) 0.5 mg IH [id number] [facility] Last Admin: 08/22/16 20:15 Dose: 0.5 mg Enoxaparin Sodium (Lovenox) 40 mg SC DAILY [facility] PRN Reason: Protocol Last Admin: 08/22/16 09:12 Dose: 40 mg Home Med (Home Med) 0.5 unit PO BID [facility] Stop: 08/25/16 08:00 Last Admin: 08/22/16 17:01 Dose: Not Given Methylprednisolone (Solu-Medrol) 30 mg IVP Q12 [facility] Last Admin: 08/22/16 21:21 Dose: 30 mg Pantoprazole Sodium (Protonix Ec Tab) 40 mg PO ACB RENATO Last Admin: 08/22/16 08:06 Dose: 40 mg - Labs Labs: Laboratory Last Values WBC 3.1 10^3/ul (4.5-11.0) L D 08/19/16 05:30 RBC 3.83 10^6/uL (3.5-6.1) 08/19/16 05:30 Hgb 11.1 gm/dL (12.0-16.0) L 08/19/16 05:30 Hct 35.0 % (36.0-48.0) L 08/19/16 05:30 MCV 91.4 fL (80.0-105.0) 08/19/16 05:30 MCH 29.0 pg (25.0-35.0) 08/19/16 05:30 MCHC 31.7 g/dl (31.0-37.0) 08/19/16 05:30 RDW 14.2 % (11.5-14.5) 08/19/16 05:30 Plt Count 96 10^3/uL (120.0-450.0) L 08/19/16 05:30 MPV 9.9 fl (7.0-11.0) 08/19/16 05:30 Gran % 60.2 % (50.0-68.0) 08/19/16 05:30 Lymph % (Auto) 29.1 % (22.0-35.0) 08/19/16 05:30 [place] % (Auto) 6.5 % (1.0-6.0) H 08/19/16 05:30 Eos % (Auto) 3.6 % (1.5-5.0) 08/19/16 05:30 Baso % (Auto) 0.6 % (0.0-3.0) 08/19/16 05:30 Gran # 1.86 (1.4-6.5) 08/19/16 05:30 Lymph # 0.9 (1.2-3.4) L 08/19/16 05:30 [place] # 0.2 (0.1-0.6) 08/19/16 05:30 Eos # 0.1 (0.0-0.7) 08/19/16 05:30 Baso # 0.02 K/mm3 (0.0-2.0) 08/19/16 05:30 Sodium 139 mmol/L (132-148) 08/19/16 05:30 Potassium 4.1 mmol/L (3.6-5.0) 08/19/16 05:30 Chloride 103 mmol/L (98-107) 08/19/16 05:30 Carbon Dioxide 29 mmol/L (21-33) 08/19/16 05:30 Anion Gap 11 (10-20) 08/19/16 05:30 BUN 22 mg/dL (7-21) H 08/19/16 05:30 Creatinine 1.0 mg/dL (0.5-1.4) 08/19/16 05:30 Est GFR ( Amer) > 60 08/19/16 05:30 Est GFR (Non-Af Amer) 54 08/19/16 05:30 Random Glucose 104 mg/dL (70-110) 08/19/16 05:30 Hemoglobin A1c 5.3 % (4.2-6.5) 08/19/16 05:30 Calcium 9.1 mg/dL (8.4-10.5) 08/19/16 05:30 Phosphorus 4.0 mg/dL (2.5-4.5) 08/19/16 05:30 Magnesium 2.0 mg/dL (1.7-2.2) 08/19/16 05:30 Total Bilirubin 0.6 mg/dL (0.2-1.3) 08/19/16 05:30 AST 26 U/L (15-39) 08/19/16 05:30 ALT 23 U/L (7-56) 08/19/16 05:30 Alkaline Phosphatase 36 U/L (38-133) L 08/19/16 05:30 Troponin I < 0.01 ng/mL 08/18/16 08:30 Total Protein 6.4 g/dL (5.8-8.3) 08/19/16 05:30 Albumin 3.4 g/dL (3.0-4.8) 08/19/16 05:30 Globulin 3.0 gm/dL 08/19/16 05:30 Albumin/Globulin Ratio 1.1 (1.1-1.8) 08/19/16 05:30 Triglycerides 52 mg/dL (35-160) 08/19/16 05:30 Cholesterol 140 mg/dL (130-200) 08/19/16 05:30 LDL Cholesterol Direct 69 mg/dL (0-129) 08/19/16 05:30 HDL Cholesterol 58 mg/dL (29-60) 08/19/16 05:30 TSH 3rd Generation 2.00 mIU/mL (0.46-4.68) 08/19/16 05:30 Urine Color Yellow (YELLOW) 08/18/16 08:01 Urine Appearance Clear (CLEAR) 08/18/16 08:01 Urine pH 7.0 (4.7-8.0) 08/18/16 08:01 Ur Specific [place] 1.010 (1.005-1.035) 08/18/16 08:01 Urine Protein 30 mg/dL (<30 mg/dL) H 08/18/16 08:01 Urine Glucose (UA) Negative mg/dL (NEGATIVE) 08/18/16 08:01 Urine Ketones Negative mg/dL (NEGATIVE) 08/18/16 08:01 Urine Blood Negative (NEGATIVE) 08/18/16 08:01 Urine Nitrate Negative (NEGATIVE) 08/18/16 08:01 Urine Bilirubin Negative (NEGATIVE) 08/18/16 08:01 Urine Urobilinogen 0.2 E.U./dL (<1 E.U./dL) 08/18/16 08:01 Ur Leukocyte Esterase Negative Z[place]/uL (NEGATIVE) 08/18/16 08:01 Urine RBC 0 - 2 /hpf (0-2) 08/18/16 08:01 Urine WBC 0 - 2 /hpf (0-6) 08/18/16 08:01 Ur Epithelial Cells 3 - 4 /hpf (0-5) 08/18/16 08:01 Urine Bacteria Few (NEG) 08/18/16 08:01 Urine Opiates Screen Positive (NEGATIVE) H 08/18/16 08:01 Urine Methadone Screen Negative (NEGATIVE) 08/18/16 08:01 Ur Barbiturates Screen Negative (NEGATIVE) 08/18/16 08:01 Ur Phencyclidine Scrn Negative (NEGATIVE) 08/18/16 08:01 Ur Amphetamines Screen Negative (NEGATIVE) 08/18/16 08:01 U Benzodiazepines Scrn Negative (NEGATIVE) 08/18/16 08:01 U Oth Cocaine Metabols Negative (NEGATIVE) 08/18/16 08:01 U Cannabinoids Screen Negative (NEGATIVE) 08/18/16 08:01 Alcohol, Quantitative < 10 mg/dL (0-10) 08/18/16 08:30 - Constitutional Appears: Well, No Acute Distress - Head Exam Head Exam: ATRAUMATIC, NORMAL INSPECTION, NORMOCEPHALIC - Eye Exam Eye Exam: Normal appearance - ENT Exam ENT Exam: Normal External Ear Exam - Neck Exam Neck Exam: Normal Inspection - Respiratory Exam Respiratory Exam: NORMAL BREATHING PATTERN - Cardiovascular Exam Cardiovascular Exam: absent: JVD - GI/Abdominal Exam GI & Abdominal Exam: absent: Distended - Rectal Exam Rectal Exam: Deferred - Extremities Exam Extremities Exam: Normal Inspection - Back Exam Additional comments: Kyphoscoliosis. - Neurological Exam Neurological Exam: Alert, Oriented x3 - Psychiatric Exam Psychiatric exam: Normal Affect, Normal Mood - Skin Skin Exam: Normal Color Assessment and Plan - Assessment and Plan (Free Text) Assessment: Back pain. Chronic anxiety. COPD. Atrial fibrillation. Pulmonary HTN. Left hadn numbness. Plan: Ketorolac 15 mg IV x 1. Nurse will bring to attention of PMD about left hand numbness complaint in AM . Continue present management.
[2016-08-23] MEDS: Arformoterol 15 mcg/2 ml Inh Sol IH SCH ×2 (07:46→19:33)
[2016-08-23] MEDS: Budesonide 0.5 mg/2 ml Inhal Susp UD IH SCH ×2 (07:46→19:33)
[2016-08-23] MEDS: Pantoprazole 40 mg EC Tab PO SCH (09:12)
[2016-08-23] MEDS: Enoxaparin 40 mg Syringe SC SCH (09:12)
[2016-08-23] MEDS: MethylPREDNISolone 40 mg Vial IVP SCH ×2 (09:12→21:09)
[2016-08-23] MEDS: BUPRENORPHINE PO SCH ×2 (10:03→16:59)
[2016-08-23] MEDS: NALOXONE 2 MG PO SCH ×2 (10:03→16:59)
--- NOTE | 2016-08-23 23:07 | CP.PCM.PN ---
Subjective - Date & Time of Evaluation Date of Evaluation: 08/23/16 Time of Evaluation: 11:00 - Subjective Subjective: 76 year old female presents to the emergency department complaining of anxiety and withdrawal from Xanax. She states she ran out of her Xanax two days ago, which she has been taking 1 mg BID for the past 10 years. She states this feels like previous symptoms when she was off Xanax. Symptoms include left sided non- exertional, non-radiating chest pain, shortness of breath, and insomnia. She also reports life stressors due to moving out of her "boarding home." up set and anxious, awaiting psychiatry evaluation Objective - Vital Signs/Intake and Output Vital Signs (last 24 hours): Temp Pulse Resp BP Pulse Ox 98 F 50 L 19 128/67 95 08/23/16 16:00 08/23/16 16:00 08/23/16 16:00 08/23/16 16:00 08/23/16 16:00 Intake and Output: 08/23/16 08/24/16 18:59 06:59 Intake Total 600 120 Balance 600 120 - Medications Medications: Current Medications Alprazolam (Xanax) 1 mg PO TID PRN; Protocol PRN Reason: Anxiety Last Admin: 08/23/16 20:44 Dose: 1 mg Amlodipine Besylate (Norvasc) 5 mg PO DAILY [facility] Last Admin: 08/23/16 09:12 Dose: 5 mg Arformoterol Tartrate (Brovana) 15 mcg IH [id number] [facility] Last Admin: 08/23/16 19:33 Dose: 15 mcg Aspirin (Aspirin) 325 mg PO DAILY [facility] Last Admin: 08/23/16 09:12 Dose: 325 mg Atenolol (Tenormin) 25 mg PO DAILY [facility] Last Admin: 08/23/16 09:12 Dose: 25 mg Budesonide (Pulmicort Respules) 0.5 mg IH [id number] [facility] Last Admin: 08/23/16 19:33 Dose: 0.5 mg Enoxaparin Sodium (Lovenox) 40 mg SC DAILY [facility] PRN Reason: Protocol Last Admin: 08/23/16 09:12 Dose: 40 mg Home Med (Home Med) 0.5 unit PO BID [facility] Stop: 08/25/16 08:00 Last Admin: 08/23/16 16:59 Dose: Not Given Methylprednisolone (Solu-Medrol) 30 mg IVP Q12 [facility] Last Admin: 08/23/16 21:09 Dose: 30 mg Pantoprazole Sodium (Protonix Ec Tab) 40 mg PO ACB [facility] Last Admin: 08/23/16 09:12 Dose: 40 mg - Constitutional Appears: No Acute Distress - Head Exam Head Exam: ATRAUMATIC, NORMAL INSPECTION, NORMOCEPHALIC - Eye Exam Eye Exam: EOMI, Normal appearance, PERRL - ENT Exam ENT Exam: Mucous Membranes Moist, Normal Exam - Neck Exam Neck Exam: Full ROM, Normal Inspection. absent: Lymphadenopathy - Respiratory Exam Respiratory Exam: Clear to Ausculation Bilateral, NORMAL BREATHING PATTERN - Cardiovascular Exam Cardiovascular Exam: REGULAR RHYTHM, +S1, +S2. absent: Murmur - GI/Abdominal Exam GI & Abdominal Exam: Soft, Normal Bowel Sounds. absent: Tenderness - Extremities Exam Extremities Exam: Full ROM, Normal Capillary Refill, Normal Inspection. absent : Joint Swelling, Pedal Edema - Neurological Exam Neurological Exam: Altered, CN II-XII Intact - Psychiatric Exam Psychiatric exam: Anxious Assessment and Plan (1) Benzodiazepine dependence Status: Acute (2) Depression Status: Acute (3) COPD (chronic obstructive pulmonary disease) Status: Acute (4) Anxiety and depression Status: Acute - Assessment and Plan (Free Text) Plan: awaiting psychiatry evaluation broncho dilators spoke to health and social care teacher sub acute once cleer by psychiatry
[2016-08-24] MEDS: Arformoterol 15 mcg/2 ml Inh Sol IH SCH ×2 (07:39→20:11)
[2016-08-24] MEDS: Budesonide 0.5 mg/2 ml Inhal Susp UD IH SCH ×2 (07:39→20:11)
[2016-08-24] MEDS: Pantoprazole 40 mg EC Tab PO SCH (08:36)
[2016-08-24] MEDS: BUPRENORPHINE PO SCH ×2 (09:51→17:43)
[2016-08-24] MEDS: NALOXONE 2 MG PO SCH ×2 (09:51→17:43)
[2016-08-24] MEDS: Enoxaparin 40 mg Syringe SC SCH (09:57)
[2016-08-24] MEDS: MethylPREDNISolone 40 mg Vial IVP SCH ×2 (09:57→21:36)
--- NOTE | 2016-08-24 14:44 | CP.PCM.PN ---
Subjective - Date & Time of Evaluation Date of Evaluation: 08/24/16 Time of Evaluation: 14:00 - Subjective Subjective: 76 year old female presents to the emergency department complaining of anxiety and withdrawal from Xanax. She states she ran out of her Xanax two days ago, which she has been taking 1 mg BID for the past 10 years. She states this feels like previous symptoms when she was off Xanax. Symptoms include left sided non- exertional, non-radiating chest pain, shortness of breath, and insomnia. She also reports life stressors due to moving out of her "boarding home." up set and anxious, awaiting psychiatry evaluation family at bed side, no new complaint Objective - Vital Signs/Intake and Output Vital Signs (last 24 hours): Temp Pulse Resp BP Pulse Ox 97.6 F 51 L 18 124/67 96 08/24/16 09:17 08/24/16 09:57 08/24/16 09:17 08/24/16 09:57 08/24/16 09:17 Intake and Output: 08/24/16 08/24/16 06:59 18:59 Intake Total 120 600 Balance 120 600 - Medications Medications: Current Medications Alprazolam (Xanax) 1 mg PO TID PRN; Protocol PRN Reason: Anxiety Last Admin: 08/24/16 11:25 Dose: 1 mg Amlodipine Besylate (Norvasc) 5 mg PO DAILY [facility] Last Admin: 08/24/16 09:57 Dose: 5 mg Arformoterol Tartrate (Brovana) 15 mcg IH [id number] [facility] Last Admin: 08/24/16 07:39 Dose: 15 mcg Aspirin (Aspirin) 325 mg PO DAILY [facility] Last Admin: 08/24/16 09:57 Dose: 325 mg Atenolol (Tenormin) 25 mg PO DAILY [facility] Last Admin: 08/24/16 09:56 Dose: 25 mg Budesonide (Pulmicort Respules) 0.5 mg IH [id number] [facility] Last Admin: 08/24/16 07:39 Dose: 0.5 mg Enoxaparin Sodium (Lovenox) 40 mg SC DAILY [facility] PRN Reason: Protocol Last Admin: 08/24/16 09:57 Dose: 40 mg Home Med (Home Med) 0.5 unit PO BID [facility] Stop: 08/25/16 08:00 Last Admin: 08/24/16 09:51 Dose: Not Given Methylprednisolone (Solu-Medrol) 30 mg IVP Q12 [facility] Last Admin: 08/24/16 09:57 Dose: 30 mg Pantoprazole Sodium (Protonix Ec Tab) 40 mg PO ACB [facility] Last Admin: 08/24/16 08:36 Dose: 40 mg - Constitutional Appears: Well - Respiratory Exam Respiratory Exam: Rhonchi Assessment and Plan (1) Benzodiazepine dependence Status: Acute (2) Depression Status: Acute (3) COPD (chronic obstructive pulmonary disease) Assessment & Plan: broncho dilators Status: Acute (4) Anxiety and depression Assessment & Plan: psychiatry consult, may benefit from psychiatry admission Status: Acute
[2016-08-25] MEDS: Budesonide 0.5 mg/2 ml Inhal Susp UD IH SCH (08:03)
[2016-08-25] MEDS: Arformoterol 15 mcg/2 ml Inh Sol IH SCH (08:03)
[2016-08-25] MEDS: Pantoprazole 40 mg EC Tab PO SCH (08:15)
[2016-08-25 09:03] VITALS: RESP 18
[2016-08-25] MEDS: Enoxaparin 40 mg Syringe SC SCH (09:56)
[2016-08-25] MEDS: MethylPREDNISolone 40 mg Vial IVP SCH (09:57)
[2016-08-25 19:13] VITALS: BP 122/70; PULSE 60; TEMP 97.7; O2SAT 98
--- NOTE | 2016-08-25 23:20 | CP.PCM.PN ---
Subjective - Date & Time of Evaluation Date of Evaluation: 08/25/16 Time of Evaluation: 16:00 - Subjective Subjective: 76 year old female presents to the emergency department complaining of anxiety and withdrawal from Xanax. She states she ran out of her Xanax two days ago, which she has been taking 1 mg BID for the past 10 years. She states this feels like previous symptoms when she was off Xanax. Symptoms include left sided non- exertional, non-radiating chest pain, shortness of breath, and insomnia. She also reports life stressors due to moving out of her "boarding home." up set and anxious, awaiting to be transfer to psychiatry Objective - Vital Signs/Intake and Output Vital Signs (last 24 hours): Temp Pulse Resp BP Pulse Ox 97.7 F 60 18 122/70 98 08/25/16 16:00 08/25/16 16:00 08/25/16 16:00 08/25/16 16:00 08/25/16 16:00 - Medications Medications: reviewed, no change - Labs Labs: reviewed - Constitutional Appears: Well - Head Exam Head Exam: ATRAUMATIC, NORMAL INSPECTION, NORMOCEPHALIC - ENT Exam ENT Exam: Mucous Membranes Moist, Normal Exam - Respiratory Exam Respiratory Exam: Prolonged Expiratory Phase, Rhonchi - Cardiovascular Exam Cardiovascular Exam: REGULAR RHYTHM, +S1, +S2. absent: Murmur - GI/Abdominal Exam GI & Abdominal Exam: Soft, Normal Bowel Sounds. absent: Tenderness - Extremities Exam Extremities Exam: Full ROM, Normal Capillary Refill, Normal Inspection. absent : Joint Swelling, Pedal Edema - Neurological Exam Neurological Exam: Altered - Psychiatric Exam Psychiatric exam: Anxious, Depressed - Skin Skin Exam: Dry, Intact, Normal Color, Warm Assessment and Plan (1) Benzodiazepine dependence Assessment & Plan: prn anxiolytic Status: Acute (2) Depression Assessment & Plan: refered to psychiatry Status: Acute (3) COPD (chronic obstructive pulmonary disease) Assessment & Plan: po and inhale broncho dilators Status: Acute (4) Anxiety and depression Status: Acute
== END 2016-08-25 19:15 | DRG 897 ==
LOC: ED 08:14 → ERH 10:15 → 2RSO 15:25 → UNDODISOB 08-19 15:12 → 3RSO 08-19 21:16 → OBSVTOIN 08-20 20:03
PROVIDERS: ADMIT Internal Medicine; ATTEND Internal Medicine
DX: F13.239 Sedative, hypnotic or anxiolytic dependence with withdrawal, unspecified (principal); F11.20 Opioid dependence, uncomplicated; R07.89 Other chest pain; I27.2 Other secondary pulmonary hypertension; D69.6 Thrombocytopenia, unspecified; J44.1 Chronic obstructive pulmonary disease with (acute) exacerbation; I11.0 Hypertensive heart disease with heart failure; I50.9 Heart failure, unspecified; I48.0 Paroxysmal atrial fibrillation; M41.9 Scoliosis, unspecified; M81.0 Age-related osteoporosis without current pathological fracture; F41.1 Generalized anxiety disorder; M54.9 Dorsalgia, unspecified; G89.29 Other chronic pain; G47.33 Obstructive sleep apnea (adult) (pediatric); F17.210 Nicotine dependence, cigarettes, uncomplicated; I08.3 Combined rheumatic disorders of mitral, aortic and tricuspid valves; K74.60 Unspecified cirrhosis of liver; B19.20 Unspecified viral hepatitis C without hepatic coma; B18.2 Chronic viral hepatitis C; H54.62 Unqualified visual loss, left eye, normal vision right eye; H40.9 Unspecified glaucoma; R20.0 Anesthesia of skin; G47.00 Insomnia, unspecified; Z79.82 Long term (current) use of aspirin

== ENCOUNTER 2016-08-25 19:19 | Inpatient (IN) | payer MEDICAID, MEDICARE ==
[2016-08-25] MEDS ORDERED: Magnesium Hydroxide Susp 30 ml UD PO PRN (21:54)
[2016-08-25] MEDS ORDERED: Alum-Mag Hydrox-Simethicone Susp (30 mL) PO PRN (21:54)
--- NOTE | 2016-08-26 03:28 | PCM.BM ---
<Armida Ford - Last Filed: 08/26/16 06:40> Treatment Plan Problems - Problems identified on initial assessmt anxiety Date Initiated: 08/25/16 Time Initiated: 19:00 Assessment reference: NA Status: Active Treatment assets and liabiliti Patient Assests: cooperative, educated, ADL independent Patient Liabilities: live alone, visual impairment - Milieu Protocol Maintain good personal hygiene: daily Encourage regular showers, daily Remind patient to perform daily oral care, every shift Assist patient to perform ADL's Maintain personal safety: daily Educate patient to report safety concerns to staff, daily Monitor environment for contraband/sharps Medication safety: Monitor for expected outcome, potential side effects: every shift, Assess barriers to learning: every shift, Assess readiness for medication education: every shift Family Contact - Goals for Treatment Patient goals for treatment: "I want to be medicated until I go to my primary physician." <Brynn Saucedo - Last Filed: 08/26/16 10:44> Treatment assets and liabiliti Patient Assests: negotiates basic needs Patient Liabilities: financial problems Discharge/Continuing Care - Discharge Discharge Criteria: Tolerates medication w/o severe side effects, Free of Suicidal thoughts <Crystal Myers - Last Filed: 08/26/16 14:42> - Diagnosis (1) Anxiety and depression Status: Acute Interventions: 08/26/16 14:41 * Assess/adjust medications daily and /or as needed * See patient on an individual basis 7x/week to assess symptoms of anxiety * Educate patient regarding benefits, side effects and risks of prescribed medications * coping strategies * medications compliance * suicide and homicide prevention * (2) Benzodiazepine dependence Status: Acute Interventions: 08/26/16 14:42 * Assess/adjust medications daily and /or as needed * See patient on an individual basis 7x/week to assess symptoms of anxiety * Educate patient regarding benefits, side effects and risks of prescribed medications *
[2016-08-26] MEDS: Pantoprazole 40 mg EC Tab PO SCH (06:15)
[2016-08-26 08:07] LABS: GLUCOSE,FASTING 79 mg/dL (65-110); HDL CHOLESTEROL 65 mg/dL (29-60); LDL CHOLESTEROL 84 mg/dL (0-129)
--- NOTE | 2016-08-26 09:41 | PCM.PSYCH ---
Initial Psychiatric Evaluation - Initial Psychiatric Evaluation Chief Complaint (in patient's own words): see written consult of 08/24 and 08/25 Current Medications: Active Medications Generic Name Dose Route Start Last Admin Trade Name Freq PRN Reason Stop Dose Admin Acetaminophen 650 mg 08/25/16 21:54 Tylenol 325mg Tab PO Q4 PRN Pain, moderate (4-7) Al Hydrox/Mg Hydrox/Simethicone 30 ml 08/25/16 21:54 Maalox Plus 30 Ml PO DAILY PRN Upset Stomach Alprazolam 1 mg 08/25/16 22:01 08/26/16 06:20 Xanax PO 1 mg TID PRN Administration Anxiety Protocol Amlodipine Besylate 5 mg 08/26/16 08:00 08/26/16 09:06 Norvasc PO 5 mg DAILY [facility] Administration Arformoterol Tartrate 15 mcg 08/26/16 08:00 Brovana IH [id number] [facility] Aspirin 325 mg 08/26/16 08:00 08/26/16 08:56 Aspirin PO 325 mg DAILY [facility] Administration Atenolol 25 mg 08/26/16 08:00 08/26/16 08:59 Tenormin PO 25 mg DAILY [facility] Administration Budesonide 0.5 mg 08/26/16 08:00 Pulmicort Respules IH [id number] [facility] Magnesium Hydroxide 30 ml 08/25/16 21:54 Milk Of Magnesia PO DAILY PRN Constipation Nicotine 1 patch 08/26/16 08:00 08/26/16 08:57 Nicoderm Cq TD 1 patch DAILY [facility] Administration Pantoprazole Sodium 40 mg 08/26/16 06:00 08/26/16 06:15 Protonix Ec Tab PO 40 mg 0600 [facility] Administration Prednisone 20 mg 08/26/16 08:00 08/26/16 08:59 Prednisone Tab PO 20 mg DAILY [facility] Administration Past Psychiatric History - Past Psychiatric History Pertinent Medical Hx (Current Medical&Sleep Prob, Allergies): Allergies Allergy/AdvReac Type Severity Reaction Status Date / Time No Known Allergies Allergy Verified 08/25/16 21:44 ALPRAZolam [Xanax] 1 mg PO TID PRN tab 08/25/16 Arformoterol [Brovana] 15 mcg IH [id number] 08/25/16 Aspirin 325 mg PO DAILY tab 08/25/16 Atenolol [Tenormin] 25 mg PO DAILY tab 08/25/16 Budesonide [Pulmicort Respules] 0.5 mg IH [id number] 08/25/16 Pantoprazole [Protonix EC Tab] 40 mg PO ACB ect 08/25/16 Prednisone [Deltasone] 20 mg PO DAILY #10 tablet 08/25/16 amLODIPine [Norvasc] 5 mg PO DAILY tab 08/25/16
[2016-08-26 11:49] LABS: BLOOD UREA NITROGEN 44 mg/dL (7-21); CALCIUM 9.3 mg/dL (8.4-10.5); GFR AFRICAN-AMERICAN > 60; GFR NON-AFRICAN AMERICAN > 60
[2016-08-26 11:51] LABS: HEMOGLOBIN 11.6 gm/dL (12.0-16.0); MEAN CELL VOLUME 92.9 fL (80.0-105.0); MEAN CORPUSCULAR HEMOGLOBIN 29.4 pg (25.0-35.0); MEAN CORPUSCULAR HGB CONC 31.7 g/dl (31.0-37.0); MEAN PLATELET VOLUME 10.4 fl (7.0-11.0); RBC 3.94 10^6/uL (3.5-6.1); RED CELL DISTRIBUTION WIDTH 14.3 % (11.5-14.5); WHITE BLOOD COUNT 3.7 10^3/ul (4.5-11.0)
--- NOTE | 2016-08-26 12:37 | CP.PCM.CON ---
<Mendel Lyles - Last Filed: 08/26/16 12:30> History of Present Illness - History of Present Illness History of Present Illness: Internal Medicine Consult Note This is a 76 y/o female with hx CAD, reported heart failure, COPD who initially presented with shortness of breath secondary to COPD exacerbation. The patient was then transferred to the psychiatry unit. Internal medicine is consulted for medical evaluation and management. Patient denies any shortness of breath or wheezing. She denies chest pain, abdominal pain, nausea, vomiting or diarrhea. The patient is taking Xanax for anxiety and states she recently ran out of her rx. She decided to come to the psychiatric unit for further evaluation and management of her anxiety. Otherwise patient has no physical complaints at this time. PMH: CAD, COPD, anxiety, paroxysmal afib PSH: none FH: non-contributory Allergies: NKDA PMD: Saleeb Review of Systems - Constitutional Constitutional: absent: Chills, Fever - EENT Eyes: absent: Blurred Vision, Change in Vision Nose/Mouth/Throat: absent: Nasal Congestion, Nasal Discharge - Cardiovascular Cardiovascular: absent: Chest Pain, Dyspnea, Edema, Syncope - Respiratory Respiratory: absent: Cough, Dyspnea - Gastrointestinal Gastrointestinal: absent: Abdominal Pain, Diarrhea, Nausea, Vomiting - Genitourinary Genitourinary: absent: Dysuria, Hematuria - Musculoskeletal Musculoskeletal: Back Pain - Integumentary Integumentary: absent: Pruritus, Rash - Neurological Neurological: absent: Dizziness, Numbness, Focal Weakness - Psychiatric Psychiatric: Anxiety. absent: Suicidal Ideation - Endocrine Endocrine: absent: Palpitations Past Patient History - Infectious Disease Hx of Infectious Diseases: None - Tetanus Immunizations Tetanus Immunization: Unknown - Past Social History Smoking Status: Light Smoker < 10 Cigarettes Daily - CARDIAC Hx Cardia Arrhythmia: Yes (afib) Hx Congestive Heart Failure: Yes Hx Hypertension: Yes - PULMONARY Hx Respiratory Disorders: Yes Hx Chronic Obstructive Pulmonary Disease (COPD): Yes Hx Emphysema: Yes Other/Comment: varicose veins ble and feet - NEUROLOGICAL Hx Neurological Disorder: Yes Hx Transient Ischemic Attacks (TIA): Yes - HEENT Hx HEENT Problems: Yes Hx Glaucoma: Yes Other/Comment: visually impaired r eye - RENAL Hx Chronic Kidney Disease: No Hx Kidney Stones: No - ENDOCRINE/METABOLIC Hx Diabetes Mellitus Type 2: Yes - HEMATOLOGICAL/ONCOLOGICAL Hx Anemia: No Hx Hepatitis B: Yes Hx Hepatitis C: Yes - INTEGUMENTARY Other/Comment: ble skin discoloration - MUSCULOSKELETAL/RHEUMATOLOGICAL Hx Falls: No - GASTROINTESTINAL Hx Gastrointestinal Disorders: Yes (cirrhosis) Hx Gastroesophageal Reflux: Yes Other/Comment: egd with bx 07/31/12 dx esophageal and gastric varicies, duodenal ulcer, hernia - GENITOURINARY/GYNECOLOGICAL Other/Comment: prolapsed uterus/ had partial vaginal hyst - PSYCHIATRIC Hx Substance Use: Yes - SURGICAL HISTORY Hx Surgeries: Yes (tonsils) Hx Appendectomy: No Hx Cholecystectomy: No Hx Coronary Stent: No - ANESTHESIA Hx Anesthesia: No Meds Allergies/Adverse Reactions: Allergies Allergy/AdvReac Type Severity Reaction Status Date / Time No Known Allergies Allergy Verified 08/25/16 21:44 - Medications Medications: Current Medications Acetaminophen (Tylenol 325mg Tab) 650 mg PO Q4 PRN PRN Reason: Pain, moderate (4-7) Al Hydrox/Mg Hydrox/Simethicone (Maalox Plus 30 Ml) 30 ml PO DAILY PRN PRN Reason: Upset Stomach Alprazolam (Xanax) 1 mg PO TID PRN; Protocol PRN Reason: Anxiety Last Admin: 08/26/16 06:20 Dose: 1 mg Amlodipine Besylate (Norvasc) 5 mg PO DAILY [facility] Last Admin: 08/26/16 09:06 Dose: 5 mg Arformoterol Tartrate (Brovana) 15 mcg IH [id number] [facility] Aspirin (Aspirin) 325 mg PO DAILY [facility] Last Admin: 08/26/16 08:56 Dose: 325 mg Atenolol (Tenormin) 25 mg PO DAILY [facility] Last Admin: 08/26/16 08:59 Dose: 25 mg Budesonide (Pulmicort Respules) 0.5 mg IH [id number] [facility] Magnesium Hydroxide (Milk Of Magnesia) 30 ml PO DAILY PRN PRN Reason: Constipation Nicotine (Nicoderm Cq) 1 patch TD DAILY [facility] Last Admin: 08/26/16 08:57 Dose: 1 patch Pantoprazole Sodium (Protonix Ec Tab) 40 mg PO 0600 [facility] Last Admin: 08/26/16 06:15 Dose: 40 mg Prednisone (Prednisone Tab) 20 mg PO DAILY [facility] Last Admin: 08/26/16 08:59 Dose: 20 mg Physical Exam - Constitutional Appears: Non-toxic - Head Exam Head Exam: ATRAUMATIC, NORMOCEPHALIC - Eye Exam Eye Exam: EOMI, PERRL - ENT Exam ENT Exam: Mucous Membranes Moist - Neck Exam Neck exam: Positive for: Full Rom, Normal Inspection - Respiratory Exam Respiratory Exam: Clear to Auscultation Bilateral. absent: Accessory Muscle Use , Rales, Rhonchi, Wheezes, Respiratory Distress - Cardiovascular Exam Cardiovascular Exam: REGULAR RHYTHM, +S1, +S2 - GI/Abdominal Exam GI & Abdominal Exam: Normal Bowel Sounds, Soft. absent: Tenderness - Extremities Exam Extremities exam: Positive for: full ROM. Negative for: calf tenderness, pedal edema - Neurological Exam Neurological exam: Alert, Oriented x3 - Psychiatric Exam Psychiatric exam: Normal Affect, Normal Mood - Skin Skin Exam: Dry, Warm Results - Vital Signs Recent Vital Signs: Last Vital Signs Temp 97.4 F L 08/26/16 07:44 Pulse 52 L 08/26/16 09:06 Resp 16 08/26/16 07:44 BP 134/60 08/26/16 09:06 Pulse Ox - Labs Result Diagrams: 08/26/16 11:07 08/26/16 11:07 Labs: Laboratory Results - last 24 hr 08/26/16 08/26/16 08/26/16 07:00 07:00 11:07 WBC 3.7 L RBC 3.94 Hgb 11.6 L Hct 36.6 MCV 92.9 MCH 29.4 MCHC 31.7 RDW 14.3 Plt Count 97 L MPV 10.4 Sodium Potassium Chloride Carbon Dioxide Anion Gap BUN Creatinine Est GFR ( Amer) Est GFR (Non-Af Amer) Random Glucose Fasting Glucose 79 Calcium Triglycerides 103 Cholesterol 169 LDL Cholesterol Direct 84 HDL Cholesterol 65 H TSH 3rd Generation 4.98 H 08/26/16 11:07 WBC RBC Hgb Hct MCV MCH MCHC RDW Plt Count MPV Sodium 138 Potassium 4.5 Chloride 97 L Carbon Dioxide 33 Anion Gap 13 BUN 44 H Creatinine 0.9 Est GFR ( Amer) > 60 Est GFR (Non-Af Amer) > 60 Random Glucose 80 Fasting Glucose Calcium 9.3 Triglycerides Cholesterol LDL Cholesterol Direct HDL Cholesterol TSH 3rd Generation Assessment & Plan - Assessment and Plan (Free Text) Assessment: 76 y/o female with hx CAD, COPD, paroxysmal afib presenting with sx of anxiety. Patient is admitted to psychiatric unit for treatment of her anxiety. Medically the patient is stable. Will f/u routine labs. hx CAD - continue aspirin, atenolol - f/u CBC, BMP hx COPD - continue with pulmicort, prednisone, brovana - lungs are clear, no respiratory distress hx HTN - continue Norvasc 5mg daily hx tobacco use - continue Nicotine patch GI ppx - Protonix 40mg daily - DVT ppx not indicated as patient is ambulating frequently Patient seen and discussed with attending. Will f/u routine labs and sign off if unremarkable. <Clare Clark - Last Filed: 08/26/16 14:31> Meds - Medications Medications: Current Medications Acetaminophen (Tylenol 325mg Tab) 650 mg PO Q4 PRN PRN Reason: Pain, moderate (4-7) Al Hydrox/Mg Hydrox/Simethicone (Maalox Plus 30 Ml) 30 ml PO DAILY PRN PRN Reason: Upset Stomach Alprazolam (Xanax) 1 mg PO TID PRN; Protocol PRN Reason: Anxiety Last Admin: 08/26/16 06:20 Dose: 1 mg Amlodipine Besylate (Norvasc) 5 mg PO DAILY [facility] Last Admin: 08/26/16 09:06 Dose: 5 mg Arformoterol Tartrate (Brovana) 15 mcg IH [id number] [facility] Aspirin (Aspirin) 325 mg PO DAILY [facility] Last Admin: 08/26/16 08:56 Dose: 325 mg Atenolol (Tenormin) 25 mg PO DAILY [facility] Last Admin: 08/26/16 08:59 Dose: 25 mg Budesonide (Pulmicort Respules) 0.5 mg IH [id number] [facility] Magnesium Hydroxide (Milk Of Magnesia) 30 ml PO DAILY PRN PRN Reason: Constipation Nicotine (Nicoderm Cq) 1 patch TD DAILY [facility] Last Admin: 08/26/16 08:57 Dose: 1 patch Pantoprazole Sodium (Protonix Ec Tab) 40 mg PO 0600 [facility] Last Admin: 08/26/16 06:15 Dose: 40 mg Prednisone (Prednisone Tab) 20 mg PO DAILY [facility] Last Admin: 08/26/16 08:59 Dose: 20 mg Results - Vital Signs Recent Vital Signs: Last Vital Signs Temp 97.4 F L 08/26/16 07:44 Pulse 52 L 08/26/16 09:06 Resp 16 08/26/16 07:44 BP 134/60 08/26/16 09:06 Pulse Ox - Labs Result Diagrams: 08/26/16 11:07 08/26/16 11:07 Labs: Laboratory Results - last 24 hr 08/26/16 08/26/16 08/26/16 07:00 07:00 11:07 WBC 3.7 L RBC 3.94 Hgb 11.6 L Hct 36.6 MCV 92.9 MCH 29.4 MCHC 31.7 RDW 14.3 Plt Count 97 L MPV 10.4 Sodium Potassium Chloride Carbon Dioxide Anion Gap BUN Creatinine Est GFR ( Amer) Est GFR (Non-Af Amer) Random Glucose Fasting Glucose 79 Calcium Triglycerides 103 Cholesterol 169 LDL Cholesterol Direct 84 HDL Cholesterol 65 H TSH 3rd Generation 4.98 H 08/26/16 11:07 WBC RBC Hgb Hct MCV MCH MCHC RDW Plt Count MPV Sodium 138 Potassium 4.5 Chloride 97 L Carbon Dioxide 33 Anion Gap 13 BUN 44 H Creatinine 0.9 Est GFR ( Amer) > 60 Est GFR (Non-Af Amer) > 60 Random Glucose 80 Fasting Glucose Calcium 9.3 Triglycerides Cholesterol LDL Cholesterol Direct HDL Cholesterol TSH 3rd Generation Attending/Attestation - Attestation I have personally seen and examined this patient.: Yes I have fully participated in the care of the patient.: Yes I have reviewed all pertinent clinical information: Yes Notes (Text): 08/26/16 14:26 attending note; Routine medical evaluation was called. Patient is a 76-year-old female with a past medical history of hypertension, paroxysmal A. fib, COPD and anxiety depression was admitted to the psychiatric floor for severe anxiety. Continue Xanax. Follow-up with psychiatrist closely. COPD; stable respiratory status. continue respiratory treatments. taper and discontinue prednisone. smoking; smoking cessation is strongly advised. Continue NicoDerm patch. Hypertension; continue Norvasc and atenolol. vp digital marketing social media and crm evaluation for discharge planning. Upon discharge the patient will follow-up with PMD . Please reconsult as needed. Thank you for the courtesy of this consultation.
--- NOTE | 2016-08-26 15:00 | PCM.PYCHPN ---
Psychiatric Progress Note - Psychiatric Progress Note Patient seen today, length of contact: 30 minutes Patient Chief Complaint: "I was not able to breathe" Problems Identified/Issues Discussed: Suicide/ homicide prevention, past psychiatric h/o, current psychiatric symptoms , medical problems, risk/benefits and alternatives of medications, medications compliance, coping strategies, substance abuse h/o, relapse prevention, importance of follow up with psychiatrist and therapist, discharge plan. Medical Problems: asthma Diagnostic Results: 08/26/16 11:07 08/26/16 11:07 Lab Results 08/26/16 11:07: Sodium 138, Potassium 4.5, Chloride 97 L, Carbon Dioxide 33, Anion Gap 13, BUN 44 H, Creatinine 0.9, Est GFR ( Amer) > 60, Est GFR ( Non-Af Amer) > 60, Random Glucose 80, Calcium 9.3 08/26/16 11:07: WBC 3.7 L, RBC 3.94, Hgb 11.6 L, Hct 36.6, MCV 92.9, MCH 29.4, MCHC 31.7, RDW 14.3, Plt Count 97 L, MPV 10.4 08/26/16 07:00: Fasting Glucose 79, Triglycerides 103, Cholesterol 169, LDL Cholesterol Direct 84, HDL Cholesterol 65 H 08/26/16 07:00: TSH 3rd Generation 4.98 H Vital Signs Temp Pulse Resp BP 08/26/16 09:06 52 L 134/60 08/26/16 08:59 52 L 134/60 08/26/16 07:44 97.4 F L 46 L 16 117/67 08/25/16 19:45 97.9 F 53 L 18 142/70 DSM 5 Symptoms Update: shortly patient is 76 years old female, questionable history of addiction to the benzodiazepines as well as opioids. initially pot was admitted to the medical side, then after medical stabilization pt was transferred to the psych inpatient unit by Dr. Baker for evaluation of depressive symptoms as well as anxiety. Patient was seen at the treatment team meeting, presented to have acceptable personal hygiene, fair ADLs. 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 pt presented to have circumstantial and tangential thought process, said that she lived in [facility], pt said that she was struggling to pay her rent which is 726$per month, her monthly income 830$. pt said that prior to come to the hospital she went upstairs in order to make some coffee, but "I was not able to make it, I was not able to breath", pt most likely had some panic attack, had her mind racing and she came to the hospital looking for help. pt was fixated on her housing, was keep saying that she was applying for senior citizen housing because "I am blind", pt is not blind. pt then was telling that she is not addicted to benzodiazepines "it is big misconception, you can even withdraw from it, I need to be on it", pt said that PMD was prescribing it to her. Pt then said that she was on suboxone becasue of her chronic pain. PT reports sometimes having racing thoughts. Pt denies any a/v/t hallucinations , paranoia. Pt signed treatment plan, reported having no questions, and left the room. as per staff pt is visible in the unit Impression: r/o panic disorder r/o substance induced anxiety r/o addiction to benzodiazepies Medication Change: Yes (celexa was started) Medical Record Reviewed: Yes Consults ordered or reviewed: pt was seen by , Dr. Ramirez Mental Status Examination - Cognitive Function Orientation: Person, Place Memory: Intact Attention: Poor Concentration: Poor Association: Loose Fund of Knowledge: Poor - Mood Mood: Depressed, Anxious - Affect Affect: Constricted - Speech Speech: Appropriate (overproductive) - Formal Thought Process Formal Thought Process: Other (circumstantial and tangential) - Suicidal Ideation Suicidal Ideation: No - Homicidal Ideation Homicidal Ideation: No Goal/Treatment Plan - Goal/Treatment Plan Need for Continued Stay: Remain at risks for inpatient hospitalization, Severe depression anxiety, Discharge may exacerbated symptoms, Severe functional impairment Progress Toward Problem(s) and Goals/Treatment Plan: milieu, structure, supportive therapy 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 Baker Primary Care Physician saw pt already Test Technician Evaluation We Will Monitor Patient Closely family involvement Estimated Date of D/C: 09/02/16 - Smoking Cessation Smoking Cessation Initiated: Yes Reason for not providing: pt refused nicotine patch
--- NOTE | 2016-08-26 17:48 | CP.PCM.CON ---
History of Present Illness - History of Present Illness History of Present Illness: 76 year old female presents to the emergency department complaining of anxiety and withdrawal from Xanax. She states she ran out of her Xanax two days ago, which she has been taking 1 mg BID for the past 10 years. She states this feels like previous symptoms when she was off Xanax. Symptoms include left sided non- exertional, non-radiating chest pain, shortness of breath, and insomnia. She also reports life stressors due to moving out of her "boarding home." after medical treatment now she is in psychiatry floor, sleepy and tired Review of Systems - Constitutional Constitutional: Daytime Sleepiness, Fatigue, Lethargy, Malaise - EENT Eyes: absent: Diplopia, Discharge Ears: absent: Decreased Hearing, Ear Discharge, Ear Pain Nose/Mouth/Throat: absent: Nasal Congestion, Nasal Discharge, Nasal Obstruction , Nasal Trauma, Nose Pain - Cardiovascular Cardiovascular: Dyspnea. absent: Chest Pain, Edema - Respiratory Respiratory: Dyspnea, Dyspnea on Exertion. absent: Hemoptysis, Wheezing, Excessive Mucous Production - Gastrointestinal Gastrointestinal: Bloating. absent: Cramping, Diarrhea - Musculoskeletal Musculoskeletal: Back Pain - Neurological Neurological: Behavioral Changes. absent: Convulsions, Disequilibrium, Dizziness, Headaches, Lack of Coordination - Psychiatric Psychiatric: Anxiety, Behavioral Changes, Depression - Hematologic/Lymphatic Hematologic: absent: Easy Bleeding, Easy Bruising Past Patient History - Infectious Disease Hx of Infectious Diseases: None - Tetanus Immunizations Tetanus Immunization: Unknown - Past Social History Smoking Status: Light Smoker < 10 Cigarettes Daily - CARDIAC Hx Cardia Arrhythmia: Yes (afib) Hx Congestive Heart Failure: Yes Hx Hypertension: Yes - PULMONARY Hx Respiratory Disorders: Yes Hx Chronic Obstructive Pulmonary Disease (COPD): Yes Hx Emphysema: Yes Other/Comment: varicose veins ble and feet - NEUROLOGICAL Hx Neurological Disorder: Yes Hx Transient Ischemic Attacks (TIA): Yes - HEENT Hx HEENT Problems: Yes Hx Glaucoma: Yes Other/Comment: visually impaired r eye - RENAL Hx Chronic Kidney Disease: No Hx Kidney Stones: No - ENDOCRINE/METABOLIC Hx Diabetes Mellitus Type 2: Yes - HEMATOLOGICAL/ONCOLOGICAL Hx Anemia: No Hx Hepatitis B: Yes Hx Hepatitis C: Yes - INTEGUMENTARY Other/Comment: ble skin discoloration - MUSCULOSKELETAL/RHEUMATOLOGICAL Hx Falls: No - GASTROINTESTINAL Hx Gastrointestinal Disorders: Yes (cirrhosis) Hx Gastroesophageal Reflux: Yes Other/Comment: egd with bx 6/4/13 dx esophageal and gastric varicies, duodenal ulcer, hernia - GENITOURINARY/GYNECOLOGICAL Other/Comment: prolapsed uterus/ had partial vaginal hyst - PSYCHIATRIC Hx Substance Use: Yes - SURGICAL HISTORY Hx Surgeries: Yes (tonsils) Hx Appendectomy: No Hx Cholecystectomy: No Hx Coronary Stent: No - ANESTHESIA Hx Anesthesia: No Meds Allergies/Adverse Reactions: Allergies Allergy/AdvReac Type Severity Reaction Status Date / Time No Known Allergies Allergy Verified 08/25/16 21:44 - Medications Medications: Current Medications Acetaminophen (Tylenol 325mg Tab) 650 mg PO Q4 PRN PRN Reason: Pain, moderate (4-7) Al Hydrox/Mg Hydrox/Simethicone (Maalox Plus 30 Ml) 30 ml PO DAILY PRN PRN Reason: Upset Stomach Alprazolam (Xanax) 1 mg PO TID PRN; Protocol PRN Reason: Anxiety Last Admin: 08/26/16 14:54 Dose: 1 mg Amlodipine Besylate (Norvasc) 5 mg PO DAILY [facility] Last Admin: 08/26/16 09:06 Dose: 5 mg Arformoterol Tartrate (Brovana) 15 mcg IH [id number] [facility] Aspirin (Aspirin) 325 mg PO DAILY [facility] Last Admin: 08/26/16 08:56 Dose: 325 mg Atenolol (Tenormin) 25 mg PO DAILY [facility] Last Admin: 08/26/16 08:59 Dose: 25 mg Budesonide (Pulmicort Respules) 0.5 mg IH [id number] [facility] Citalopram Hydrobromide (Celexa) 10 mg PO DAILY [facility] Last Admin: 08/26/16 14:54 Dose: 10 mg Magnesium Hydroxide (Milk Of Magnesia) 30 ml PO DAILY PRN PRN Reason: Constipation Nicotine (Nicoderm Cq) 1 patch TD DAILY [facility] Last Admin: 08/26/16 08:57 Dose: 1 patch Pantoprazole Sodium (Protonix Ec Tab) 40 mg PO 0600 [facility] Last Admin: 08/26/16 06:15 Dose: 40 mg Prednisone (Prednisone Tab) 10 mg PO DAILY [facility] Physical Exam - Constitutional Appears: In Acute Distress - Head Exam Head Exam: ATRAUMATIC, NORMAL INSPECTION, NORMOCEPHALIC - Eye Exam Eye Exam: EOMI, Normal appearance, PERRL Pupil Exam: NORMAL ACCOMODATION, PERRL - Neck Exam Neck exam: Positive for: Normal Inspection - Respiratory Exam Respiratory Exam: Clear to Auscultation Bilateral, NORMAL BREATHING PATTERN - GI/Abdominal Exam GI & Abdominal Exam: Normal Bowel Sounds, Soft. absent: Tenderness - Extremities Exam Extremities exam: Positive for: normal inspection - Back Exam Back exam: NORMAL INSPECTION - Neurological Exam Neurological exam: Alert, CN II-XII Intact, Normal Gait, Oriented x3, Reflexes Normal - Psychiatric Exam Psychiatric exam: Anxious, Depressed - Skin Skin Exam: Dry, Intact, Normal Color, Warm Results - Vital Signs Recent Vital Signs: Last Vital Signs Temp 97.4 F L 08/26/16 07:44 Pulse 52 L 08/26/16 16:26 Resp 16 08/26/16 07:44 BP 141/64 08/26/16 16:26 Pulse Ox - Labs Result Diagrams: 08/26/16 11:07 08/26/16 11:07 Labs: Laboratory Results - last 24 hr 08/26/16 08/26/16 08/26/16 07:00 07:00 07:30 WBC RBC Hgb Hct MCV MCH MCHC RDW Plt Count MPV Sodium Potassium Chloride Carbon Dioxide Anion Gap BUN Creatinine Est GFR ( Amer) Est GFR (Non-Af Amer) Random Glucose Fasting Glucose 79 Calcium Triglycerides 103 Cholesterol 169 LDL Cholesterol Direct 84 HDL Cholesterol 65 H TSH 3rd Generation 4.98 H RPR Nonreactive 08/26/16 08/26/16 11:07 11:07 WBC 3.7 L RBC 3.94 Hgb 11.6 L Hct 36.6 MCV 92.9 MCH 29.4 MCHC 31.7 RDW 14.3 Plt Count 97 L MPV 10.4 Sodium 138 Potassium 4.5 Chloride 97 L Carbon Dioxide 33 Anion Gap 13 BUN 44 H Creatinine 0.9 Est GFR ( Amer) > 60 Est GFR (Non-Af Amer) > 60 Random Glucose 80 Fasting Glucose Calcium 9.3 Triglycerides Cholesterol LDL Cholesterol Direct HDL Cholesterol TSH 3rd Generation RPR Assessment & Plan (1) Anxiety and depression Assessment and Plan: Psychiatry follow up, anxiolytic, fall precaution Status: Acute (2) Benzodiazepine dependence Status: Acute (3) COPD (chronic obstructive pulmonary disease) Assessment and Plan: po and inhale broncho dilator Status: Acute (4) Depression Status: Acute (5) Tachyarrhythmia Status: Acute - Assessment and Plan (Free Text) Plan: fall precaution
[2016-08-27] MEDS: Arformoterol 15 mcg/2 ml Inh Sol IH SCH ×2 (08:16→21:02)
[2016-08-27] MEDS: Budesonide 0.5 mg/2 ml Inhal Susp UD IH SCH ×2 (08:17→21:02)
[2016-08-27] MEDS: Pantoprazole 40 mg EC Tab PO SCH (09:47)
--- NOTE | 2016-08-27 11:18 | PCM.PYCHPN ---
Psychiatric Progress Note - Psychiatric Progress Note Patient seen today, length of contact: 30 minutes Patient Chief Complaint: "I want to live with my grandson, I want to be discharged" Problems Identified/Issues Discussed: Suicide/ homicide prevention, past psychiatric h/o, current psychiatric symptoms , medical problems, risk/benefits and alternatives of medications, medications compliance, coping strategies, substance abuse h/o, relapse prevention, importance of follow up with psychiatrist and therapist, discharge plan. Medical Problems: asthma Diagnostic Results: 08/26/16 11:07 08/26/16 11:07 Lab Results 08/26/16 11:07: Sodium 138, Potassium 4.5, Chloride 97 L, Carbon Dioxide 33, Anion Gap 13, BUN 44 H, Creatinine 0.9, Est GFR ( Amer) > 60, Est GFR ( Non-Af Amer) > 60, Random Glucose 80, Calcium 9.3 08/26/16 11:07: WBC 3.7 L, RBC 3.94, Hgb 11.6 L, Hct 36.6, MCV 92.9, MCH 29.4, MCHC 31.7, RDW 14.3, Plt Count 97 L, MPV 10.4 08/26/16 07:00: Fasting Glucose 79, Triglycerides 103, Cholesterol 169, LDL Cholesterol Direct 84, HDL Cholesterol 65 H 08/26/16 07:00: TSH 3rd Generation 4.98 H Vital Signs Temp Pulse Resp BP 08/26/16 09:06 52 L 134/60 08/26/16 08:59 52 L 134/60 08/26/16 07:44 97.4 F L 46 L 16 117/67 08/25/16 19:45 97.9 F 53 L 18 142/70 DSM 5 Symptoms Update: shortly patient is 76 years old female, questionable history of addiction to the benzodiazepines as well as opioids. initially pot was admitted to the medical side, then after medical stabilization pt was transferred to the psych inpatient unit by Dr. Baker for evaluation of depressive symptoms as well as anxiety. Patient was seen in her room, presented to have acceptable personal hygiene, fair ADLs. this song writer is covering for . pt presented to have circumstantial and tangential thought process, pt submitted 48hr notice, requesting to be discharged. pt was educated about risk of leaving AMA, initially pt was in agreement to rescind it, but as per RN report pt refused to rescinded it later on. pt said "I am not danger to self or others, I will live with my grandson", no collateral info available, pt has poor family dynamics. pt c/o insomnia, willing to take remeron, risk, benefits and alternatives discussed with pt. PT reports sometimes having racing thoughts. Pt denies any a/v/t hallucinations , paranoia. as per staff pt is visible in the unit, no behavioral incidents. pt tolerated medications well, no side effect observed or reported, AIMS 0, no EPS. Impression: r/o panic disorder r/o substance induced anxiety r/o addiction to benzodiazepies Medication Change: Yes (remeron hs) Medical Record Reviewed: Yes Consults ordered or reviewed: pt was seen by , Dr. Ramirez Mental Status Examination - Cognitive Function Orientation: Person, Place Memory: Intact Attention: Poor Concentration: Poor Association: Loose Fund of Knowledge: Poor - Mood Mood: Depressed, Anxious - Affect Affect: Constricted - Speech Speech: Appropriate (overproductive) - Formal Thought Process Formal Thought Process: Other (circumstantial and tangential) - Suicidal Ideation Suicidal Ideation: No - Homicidal Ideation Homicidal Ideation: No Goal/Treatment Plan - Goal/Treatment Plan Need for Continued Stay: Remain at risks for inpatient hospitalization, Severe depression anxiety, Discharge may exacerbated symptoms, Severe functional impairment Progress Toward Problem(s) and Goals/Treatment Plan: milieu, structure, supportive therapy Celexa 10 mg daily for depression and anxiety xanax will be decreased to 0.5 mg po tid (initially pt was on 1mg tid by ), if pt will not rescind 48 hr notice it will be not safe to d/c pt with no prescription of 1mg, it will be safer to taper down this medication remeron 7.5mg po hs for insomnia Primary Care Physician saw pt already Rail Switchman Evaluation We Will Monitor Patient Closely family involvement Estimated Date of D/C: 09/02/16
--- NOTE | 2016-08-28 00:56 | CP.PCM.PN ---
Subjective - Date & Time of Evaluation Date of Evaluation: 08/27/16 Time of Evaluation: 15:00 - Subjective Subjective: 76 year old female presents to the emergency department complaining of anxiety and withdrawal from Xanax. She states she ran out of her Xanax two days ago, which she has been taking 1 mg BID for the past 10 years. She states this feels like previous symptoms when she was off Xanax. Symptoms include left sided non- exertional, non-radiating chest pain, shortness of breath, and insomnia. She also reports life stressors due to moving out of her "boarding home." after medical treatment now she is in psychiatry floor, sleepy and tired, stile withdrawing from sedatives Objective - Vital Signs/Intake and Output Vital Signs (last 24 hours): Temp Pulse Resp BP Pulse Ox 97.5 F L 61 16 165/83 H 08/27/16 07:13 08/27/16 09:48 08/27/16 07:13 08/27/16 09:48 - Medications Medications: Current Medications Acetaminophen (Tylenol 325mg Tab) 650 mg PO Q4 PRN PRN Reason: Pain, moderate (4-7) Al Hydrox/Mg Hydrox/Simethicone (Maalox Plus 30 Ml) 30 ml PO DAILY PRN PRN Reason: Upset Stomach Alprazolam (Xanax) 0.5 mg PO TID PRN; Protocol PRN Reason: Anxiety Amlodipine Besylate (Norvasc) 5 mg PO DAILY [facility] Last Admin: 08/27/16 09:48 Dose: 5 mg Arformoterol Tartrate (Brovana) 15 mcg IH [id number] [facility] Last Admin: 08/27/16 21:02 Dose: 15 mcg Aspirin (Aspirin) 325 mg PO DAILY [facility] Last Admin: 08/27/16 09:46 Dose: 325 mg Atenolol (Tenormin) 25 mg PO DAILY [facility] Last Admin: 08/27/16 09:47 Dose: 25 mg Budesonide (Pulmicort Respules) 0.5 mg IH [id number] [facility] Last Admin: 08/27/16 21:02 Dose: 0.5 mg Citalopram Hydrobromide (Celexa) 20 mg PO DAILY [facility] Magnesium Hydroxide (Milk Of Magnesia) 30 ml PO DAILY PRN PRN Reason: Constipation Mirtazapine (Remeron) 7.5 mg PO HS PRN PRN Reason: Insomnia Last Admin: 08/27/16 21:25 Dose: 7.5 mg Nicotine (Nicoderm Cq) 1 patch TD DAILY [facility] Last Admin: 08/27/16 09:46 Dose: 1 patch Pantoprazole Sodium (Protonix Ec Tab) 40 mg PO 0600 [facility] Last Admin: 08/27/16 09:47 Dose: 40 mg Prednisone (Prednisone Tab) 10 mg PO DAILY [facility] Last Admin: 08/27/16 09:47 Dose: 10 mg - Labs Labs: 08/26/16 11:07 08/26/16 11:07 - Constitutional Appears: Chronically Ill - Head Exam Head Exam: ATRAUMATIC, NORMAL INSPECTION, NORMOCEPHALIC - ENT Exam ENT Exam: Mucous Membranes Moist, Normal Exam - Neck Exam Neck Exam: Full ROM, Normal Inspection. absent: Lymphadenopathy - Respiratory Exam Respiratory Exam: Clear to Ausculation Bilateral, NORMAL BREATHING PATTERN - Cardiovascular Exam Cardiovascular Exam: REGULAR RHYTHM, +S1, +S2. absent: Murmur - GI/Abdominal Exam GI & Abdominal Exam: Soft, Normal Bowel Sounds. absent: Tenderness - Back Exam Back Exam: NORMAL INSPECTION - Neurological Exam Neurological Exam: Alert, Awake, CN II-XII Intact, Normal Gait, Oriented x3 - Psychiatric Exam Psychiatric exam: Anxious Assessment and Plan (1) Anxiety and depression Assessment & Plan: as per psychiatry Status: Acute (2) Benzodiazepine dependence Status: Acute (3) COPD (chronic obstructive pulmonary disease) Assessment & Plan: po and inhale broncho dilators Status: Acute (4) Depression Assessment & Plan: on anti depressives Status: Acute (5) Tachyarrhythmia Assessment & Plan: stable Status: Acute
[2016-08-28] MEDS: Pantoprazole 40 mg EC Tab PO SCH (08:03)
--- NOTE | 2016-08-28 10:44 | PCM.PYCHPN ---
Psychiatric Progress Note - Psychiatric Progress Note Patient seen today, length of contact: 30 minutes Patient Chief Complaint: "You cannot give a call to my grandson, he is mad at me, I feel not okay, you keep changing my medications..." Problems Identified/Issues Discussed: Suicide/ homicide prevention, past psychiatric h/o, current psychiatric symptoms , medical problems, risk/benefits and alternatives of medications, medications compliance, coping strategies, substance abuse h/o, relapse prevention, importance of follow up with psychiatrist and therapist, discharge plan. Medical Problems: asthma scoliosis RA chronic back pain Diagnostic Results: 08/26/16 11:07 08/26/16 11:07 Lab Results 08/26/16 11:07: Sodium 138, Potassium 4.5, Chloride 97 L, Carbon Dioxide 33, Anion Gap 13, BUN 44 H, Creatinine 0.9, Est GFR ( Amer) > 60, Est GFR ( Non-Af Amer) > 60, Random Glucose 80, Calcium 9.3 08/26/16 11:07: WBC 3.7 L, RBC 3.94, Hgb 11.6 L, Hct 36.6, MCV 92.9, MCH 29.4, MCHC 31.7, RDW 14.3, Plt Count 97 L, MPV 10.4 08/26/16 07:00: Fasting Glucose 79, Triglycerides 103, Cholesterol 169, LDL Cholesterol Direct 84, HDL Cholesterol 65 H 08/26/16 07:00: TSH 3rd Generation 4.98 H Vital Signs Temp Pulse Resp BP 08/26/16 09:06 52 L 134/60 08/26/16 08:59 52 L 134/60 08/26/16 07:44 97.4 F L 46 L 16 117/67 08/25/16 19:45 97.9 F 53 L 18 142/70 Temp Pulse Resp BP Pulse Ox 98.4 F 64 20 154/74 H 08/28/16 07:52 08/28/16 08:02 08/28/16 07:52 08/28/16 08:02 DSM 5 Symptoms Update: shortly patient is 76 years old female, questionable history of addiction to the benzodiazepines as well as opioids. initially pot was admitted to the medical side, then after medical stabilization pt was transferred to the psych inpatient unit by Dr. Baker for evaluation of depressive symptoms as well as anxiety. Patient was seen in her room, presented to have acceptable personal hygiene, fair ADLs. this service writer advisor is covering for . pt presented to have circumstantial and tangential thought process, pt does not sound rational, pt submitted 48hr notice August 26, yesterday pt wanted to rescind it but later on changed her mind and requested to be d/c, this service writer advisor decreased dose of xanax because risk of withdrawal, pt was upset over that fact. Pt was irritable today at am, said that "you keep changing my medications , I need to be on xanax and syboxone...", this service writer advisor explained rationale behind this decision, pt was more receptive, this service writer advisor asked to give a call to her grandson, pt did not give permission, eventually pt agreed to stay in the hospital, complete tx, pt c/o back pain, muscle relaxant and ibuprofen were started, xanax was resumed, will see pt tomorrow. pt denied thoughts of harming self or others. PT reports sometimes having racing thoughts. Pt denies any a/v/t hallucinations , paranoia. as per staff pt is visible in the unit, no behavioral incidents. pt tolerated medications well, no side effect observed or reported, AIMS 0, no EPS. Impression: r/o panic disorder r/o substance induced anxiety r/o addiction to benzodiazepies Medication Change: Yes (muslcle relaxants, ibuprofen, xanax resumed) Medical Record Reviewed: Yes Consults ordered or reviewed: pt was seen by , Dr. Ramirez Mental Status Examination - Cognitive Function Orientation: Person, Place Memory: Intact Attention: Poor (somewhat better) Concentration: Poor (somewhat better) Association: Loose (somewhat better) Fund of Knowledge: WNL - Mood Mood: Depressed (somewhat better), Anxious ("I feel more anxious") - Affect Affect: Constricted (irritable and angry) - Speech Speech: Appropriate (overproductive) - Formal Thought Process Formal Thought Process: Other (circumstantial and tangential) - Suicidal Ideation Suicidal Ideation: No - Homicidal Ideation Homicidal Ideation: No Goal/Treatment Plan - Goal/Treatment Plan Need for Continued Stay: Remain at risks for inpatient hospitalization, Severe depression anxiety, Discharge may exacerbated symptoms, Severe functional impairment Progress Toward Problem(s) and Goals/Treatment Plan: milieu, structure, supportive therapy Celexa 10 mg daily for depression and anxiety xanax will be incresaed to the previous dose 1mg tid (pt was taking it for 10 years), moreover pt said that she will go to her PMD and he will prescribe the same dose remeron 7.5mg po hs for insomnia Primary Care Physician saw pt already Game Programer Evaluation We Will Monitor Patient Closely family involvement Estimated Date of D/C: 08/29/16 (possible d/c tomorrow with intact dc plan)
[2016-08-28] MEDS: Budesonide 0.5 mg/2 ml Inhal Susp UD IH SCH ×2 (16:06→21:30)
[2016-08-28] MEDS: Arformoterol 15 mcg/2 ml Inh Sol IH SCH ×2 (16:06→21:30)
--- NOTE | 2016-08-28 23:27 | CP.PCM.PN ---
Subjective - Date & Time of Evaluation Date of Evaluation: 08/28/16 Time of Evaluation: 11:00 - Subjective Subjective: 76 year old female presents to the emergency department complaining of anxiety and withdrawal from Xanax. She states she ran out of her Xanax two days ago, which she has been taking 1 mg BID for the past 10 years. She states this feels like previous symptoms when she was off Xanax. Symptoms include left sided non- exertional, non-radiating chest pain, shortness of breath, and insomnia. She also reports life stressors due to moving out of her "boarding home." after medical treatment now she is in psychiatry floor, sleepy and tired, stile withdrawing from sedatives sleepy today Objective - Vital Signs/Intake and Output Vital Signs (last 24 hours): Temp Pulse Resp BP Pulse Ox 98.4 F 84 17 107/60 08/28/16 07:52 08/28/16 15:00 08/28/16 15:00 08/28/16 15:00 - Medications Medications: Current Medications Acetaminophen (Tylenol 325mg Tab) 650 mg PO Q4 PRN PRN Reason: Pain, moderate (4-7) Al Hydrox/Mg Hydrox/Simethicone (Maalox Plus 30 Ml) 30 ml PO DAILY PRN PRN Reason: Upset Stomach Alprazolam (Xanax) 1 mg PO TID PRN; Protocol PRN Reason: Anxiety Last Admin: 08/28/16 19:23 Dose: 1 mg Amlodipine Besylate (Norvasc) 5 mg PO DAILY [facility] Last Admin: 08/28/16 08:02 Dose: 5 mg Arformoterol Tartrate (Brovana) 15 mcg [id number] [facility] Last Admin: 08/28/16 16:06 Dose: Not Given Aspirin (Aspirin) 325 mg PO DAILY [facility] Last Admin: 08/28/16 08:54 Dose: Not Given Atenolol (Tenormin) 25 mg PO DAILY [facility] Last Admin: 08/28/16 08:01 Dose: 25 mg Budesonide (Pulmicort Respules) 0.5 mg IH [id number] [facility] Last Admin: 08/28/16 16:06 Dose: Not Given Citalopram Hydrobromide (Celexa) 20 mg PO DAILY [facility] Last Admin: 07/02/17 08:03 Dose: 20 mg Cyclobenzaprine HCl (Flexeril) 5 mg PO TID PRN PRN Reason: muscle spasms Ibuprofen (Motrin Tab) 800 mg PO TID PRN PRN Reason: moderate pain Magnesium Hydroxide (Milk Of Magnesia) 30 ml PO DAILY PRN PRN Reason: Constipation Mirtazapine (Remeron) 7.5 mg PO HS PRN PRN Reason: Insomnia Last Admin: 08/27/16 21:25 Dose: 7.5 mg Nicotine (Nicoderm Cq) 1 patch TD DAILY [facility] Last Admin: 08/28/16 08:57 Dose: Not Given Pantoprazole Sodium (Protonix Ec Tab) 40 mg PO 0600 [facility] Last Admin: 08/28/16 08:03 Dose: 40 mg Prednisone (Prednisone Tab) 10 mg PO DAILY [facility] Last Admin: 08/28/16 08:54 Dose: 10 mg - Labs Labs: 08/26/16 11:07 08/26/16 11:07 - Constitutional Appears: Confused, Chronically Ill - Head Exam Head Exam: ATRAUMATIC, NORMAL INSPECTION, NORMOCEPHALIC - ENT Exam ENT Exam: Mucous Membranes Moist, Normal Exam - Neck Exam Neck Exam: Full ROM, Normal Inspection. absent: Lymphadenopathy - Respiratory Exam Respiratory Exam: Clear to Ausculation Bilateral, NORMAL BREATHING PATTERN - Cardiovascular Exam Cardiovascular Exam: REGULAR RHYTHM, +S1, +S2. absent: Murmur - GI/Abdominal Exam GI & Abdominal Exam: Soft, Normal Bowel Sounds. absent: Tenderness - Extremities Exam Extremities Exam: Full ROM, Normal Capillary Refill, Normal Inspection. absent : Joint Swelling, Pedal Edema - Psychiatric Exam Psychiatric exam: Anxious, Depressed Assessment and Plan (1) Anxiety and depression Assessment & Plan: continue therapy, Status: Acute (2) Benzodiazepine dependence Assessment & Plan: seen by psychiatry Status: Acute (3) COPD (chronic obstructive pulmonary disease) Assessment & Plan: po and inhale broncho dilators Status: Acute (4) Depression Status: Acute (5) Tachyarrhythmia Status: Acute
[2016-08-29 07:37] VITALS: RESP 20; TEMP 98.2
[2016-08-29] MEDS: Budesonide 0.5 mg/2 ml Inhal Susp UD IH SCH (07:53)
[2016-08-29] MEDS: Arformoterol 15 mcg/2 ml Inh Sol IH SCH (07:53)
[2016-08-29] MEDS: Pantoprazole 40 mg EC Tab PO SCH (09:29)
[2016-08-29 09:30] VITALS: BP 158/83; PULSE 66
== END 2016-08-29 15:10 | disposition home or self-care (01) | DRG 881 ==
LOC: PSYC 19:19
PROVIDERS: ADMIT Psychiatry & Neurology Addiction Medicine; ATTEND Psychiatry & Neurology Addiction Medicine
PROC: GZ3ZZZZ Medication Management (ICD-10-PCS; principal; 2016-08-26)
DX: F32.9 Major depressive disorder, single episode, unspecified (principal); F41.9 Anxiety disorder, unspecified; F13.20 Sedative, hypnotic or anxiolytic dependence, uncomplicated; I48.0 Paroxysmal atrial fibrillation; I11.0 Hypertensive heart disease with heart failure; I50.9 Heart failure, unspecified; M41.9 Scoliosis, unspecified; K74.60 Unspecified cirrhosis of liver; J44.9 Chronic obstructive pulmonary disease, unspecified; I25.10 Atherosclerotic heart disease of native coronary artery without angina pectoris; F17.210 Nicotine dependence, cigarettes, uncomplicated; G47.00 Insomnia, unspecified; G89.29 Other chronic pain; M54.9 Dorsalgia, unspecified; K21.9 Gastro-esophageal reflux disease without esophagitis